=== PATIENT | female | born 1935 | race Two or more races ===

== ENCOUNTER 2017-05-16 20:25 | Inpatient (IN) | payer MEDICARE, MEDICAID ==
[~2017-05-16] VITALS: Ht 157.5 cm; Wt 47.6 kg
[2017-05-16 20:30] VITALS: BP 94/61
[2017-05-16] MEDS ORDERED: MULTIVITAMINS1 EAC2 ORAL (20:30)
[2017-05-16] MEDS ORDERED: PROTONIX40 MG ORAL (20:30)
[2017-05-16] MEDS ORDERED: ZOLPIDEM TARTRAT5 MG ORAL (20:30)
--- NOTE | 2017-05-16 20:44 | Emergency Room Report ---
History of Present Illness General Chief Complaint: General Complaint Source: Patient, Medical Record Present Illness HPI Patient is 81-year-old female presented after increased generalized weakness as well as decreased oral intake. Patient had gradual onset of symptoms. Reportedly patient had not been eating for the past 3 days. The patient was sent from nursing facility. The patient primary care physician Dr. Pio Webb. The patient had some nonproductive cough. She had a reported having some epigastric pain. History is limited by patient's dementia Allergies: Coded Allergies: No Known Allergies (Unverified , 05/16/17) Patient History Past Medical History: see triage record Last Menstrual Period: N/A Reviewed Nursing Documentation: PMH: Agreed, PSxH: Agreed Nursing Documentation-PMH Past Medical History: No History, Except For Hx Hypertension: Yes Review of Systems All Other Systems: limited - by poor historian Physical Exam Vital Signs Date Time Temp Pulse Resp B/P (MAP) Pulse Ox O2 Delivery O2 Flow Rate FiO2 05/16/17 20:26 98.8 88 16 94/61 98 Room Air General Appearance: alert, Chronically Ill Eyes: bilateral eye abnormal EOM ENT: dry mucus membranes Neck: normal inspection, limited range of motion Respiratory: chest non-tender, lungs clear, normal breath sounds Cardiovascular #1: normal peripheral pulses, regular rate, rhythm, no edema Gastrointestinal: soft, tenderness - epigastric Rectal: deferred Genitourinary: normal inspection Musculoskeletal: normal inspection Neurologic: normal inspection, alert, responsive, motor weakness - 4/5 Psychiatric: mood/affect normal Skin: normal inspection, normal color, no rash Medical Decision Making Diagnostic Impression: Primary Impression: Failure to thrive Additional Impression: Anemia ER Course Patient presented for generalized weakness. Differential diagnosis included was not limited to anemia, urinary tract infection, electrolyte abnormality, hypothyroidism, myocardial infarction, myasthenia gravis, dehydration, among others. Because of complexity of patient's case laboratory testing and imaging studies were ordered.Laboratory testing was notable for moderate anemia with hemoglobin less than 8. Patient was given IV fluids. The patient was discussed with Dr. Pio Webb for inpatient management due to primary care physician Labs Test 05/16/17 21:10 05/16/17 23:23 05/17/17 02:00 Differential Total Cells Counted 100 Neutrophils % (Manual) 78 % (45-75) Lymphocytes % (Manual) 14 % (20-45) Monocytes % (Manual) 6 % (1-10) Eosinophils % (Manual) 2 % (0-3) Basophils % (Manual) 0 % (0-2) Band Neutrophils 0 % (0-8) Platelet Estimate Adequate Platelet Morphology Normal Polychromasia 1+ Hypochromasia 1+ Anisocytosis 2+ Lactic Acid Level 1.70 mmol/L (0.66-2.22) Total Creatine Kinase 62 U/L (26-308) Creatine Kinase MB 0.7 NG/ML (0.0-3.6) Creatine Kinase MB Relative Index 1.1 Troponin I 0.026 ng/mL (0.000-0.056) Pro-B-Type Natriuretic Peptide 238 pg/mL (0-125) Urine Color Yellow Urine Appearance Clear Urine pH 6.5 (4.5-8.0) Urine Specific [place] 1.015 (1.005-1.035) Urine Protein 1+ (NEGATIVE) Urine Glucose (UA) Negative (NEGATIVE) Urine Ketones Negative (NEGATIVE) Urine Occult Blood Negative (NEGATIVE) Urine Nitrite Negative (NEGATIVE) Urine Bilirubin Negative (NEGATIVE) Urine Urobilinogen 1 MG/DL (0.0-1.0) Urine Leukocyte Esterase Negative (NEGATIVE) Urine RBC 0-2 /HPF (0 - 2) Urine WBC 0-2 /HPF (0 - 2) Urine Squamous Epithelial Cells Occasional /LPF Urine Bacteria None /HPF (NONE) Sodium Level 141 MMOL/L (136-145) Potassium Level 3.4 MMOL/L (3.5-5.1) Chloride Level 108 MMOL/L (98-107) Carbon Dioxide Level 24 MMOL/L (21-32) Anion Gap 9 mmol/L (5-15) Blood Urea Nitrogen 35 mg/dL (7-18) Creatinine 1.0 MG/DL (0.55-1.30) Estimat Glomerular Filtration Rate mL/min (>60) Glucose Level 87 MG/DL (74-106) Calcium Level 8.6 MG/DL (8.5-10.1) Iron Level 13 ug/dL (50-175) Total Iron Binding Capacity 256 ug/dL (250-450) Percent Iron Saturation 5 % (15-50) Unsaturated Iron Binding 243 ug/dL (112-346) Total Bilirubin 0.4 MG/DL (0.2-1.0) Aspartate Amino Transf (AST/SGOT) 24 U/L (15-37) Alanine Aminotransferase (ALT/SGPT) 15 U/L (12-78) Alkaline Phosphatase 51 U/L (46-116) Lactate Dehydrogenase 202 U/L (81-234) Total Protein 6.2 G/DL (6.4-8.2) Albumin 2.3 G/DL (3.4-5.0) Globulin 3.9 g/dL Albumin/Globulin Ratio 0.6 (1.0-2.7) Triglycerides Level 42 MG/DL (0-200) Cholesterol Level 78 MG/DL (< 200) LDL Cholesterol 48 mg/dL (<100) HDL Cholesterol 31 MG/DL (40-60) Cholesterol/HDL Ratio 2.5 (3.3-4.4) Folate 15.7 NG/ML (3.1-17.5) Thyroid Stimulating Hormone (TSH) 2.616 uiU/mL (0.360-3.740) EKG Diagnostic Results Rate: normal Rhythm: NSR ST Segments: no acute changes ASA given to the pt in ED: No Rhythm Strip Diag. Results EP Interpretation: yes Rhythm: NSR, no PVC's, no ectopy Last Vital Signs Date Time Temp Pulse Resp B/P (MAP) Pulse Ox O2 Delivery O2 Flow Rate FiO2 05/16/17 20:26 98.8 88 16 94/61 98 Room Air Status: improved Disposition: HOME, SELF-CARE Condition: Stable Israel Buitrago May 16, 2017 20:44
[2017-05-16 21:40] LABS: MEAN CORPUSCULAR HGB CONC 28.8 G/DL (32.0-36.0); MEAN CORPUSCULAR VOLUME 83 FL (80-99); MEAN PLATELET VOLUME 7.5 FL (6.5-10.1); PLATELET COUNT 199 K/UL (150-450); RED BLOOD COUNT 3.29 M/UL (4.20-5.40); WHITE BLOOD COUNT 8.3 K/UL (4.8-10.8)
[2017-05-16 21:55] LABS: INR 1.1 (0.9-1.1); PROTHROMBIN TIME 11.1 SEC (9.30-11.50)
[2017-05-16 22:10] LABS: ALANINE AMINOTRANSFERASE 18 U/L (12-78); ALBUMIN/GLOBULIN RATIO 0.6 (1.0-2.7); ANION GAP 12 mmol/L (5-15); ASPARTATE AMINO TRANSFERASE 28 U/L (15-37); CALCIUM 9.2 MG/DL (8.5-10.1); CARBON DIOXIDE 22 MMOL/L (21-32); CHLORIDE 107 MMOL/L (98-107); CKMB 0.7 NG/ML (0.0-3.6); POTASSIUM 3.4 MMOL/L (3.5-5.1); SODIUM 141 MMOL/L (136-145); TOTAL PROTEIN 6.9 G/DL (6.4-8.2)
[2017-05-16 22:30] VITALS: BP 101/63
[2017-05-16 22:31] LABS: EOSINOPHILS % (MANUAL) 2 % (0-3); LYMPHOCYTES % (MANUAL) 14 % (20-45); NEUTROPHILS % (MANUAL) 78 % (45-75); TOTAL CELLS COUNTED 100
[2017-05-16 22:32] LABS: BAND NEUTROPHILS % (MANUAL) 0 % (0-8); BASOPHILS % (MANUAL) 0 % (0-2); PLATELET ESTIMATE ADEQUATE
[2017-05-16 22:34] LABS: ANISOCYTOSIS 2+; HYPOCHROMASIA 1+; PLATELET MORPHOLOGY NORMAL; POLYCHROMASIA 1+
[2017-05-16] MEDS ORDERED: Miralax 17gm pkt ORAL PRN (23:30)
[2017-05-16] MEDS ORDERED: LORazepam Inj 2mg/ml 1ml IV PRN (23:30)
[2017-05-16] MEDS ORDERED: Zolpidem 5mg tab ORAL PRN (23:30)
[2017-05-16] MEDS ORDERED: Morphine Sulfate 2mg/ml Inj IVP PRN (23:30)
[2017-05-16] MEDS ORDERED: Mylanta II UD 30ml ORAL PRN (23:30)
[2017-05-16 23:40] LABS: APPEARANCE,URINE CLEAR; KETONES,URINE NEGATIVE (NEGATIVE); LEUKOCYTE ESTERASE ,URINE NEGATIVE (NEGATIVE); NITRITE,URINE NEGATIVE (NEGATIVE); PH,URINE 6.5 (4.5-8.0); PROTEIN,URINE 1+ (NEGATIVE); UROBILINOGEN,URINE 1 MG/DL (0.0-1.0)
[2017-05-16 23:57] LABS: RBC,URINE 0-2 /HPF (0 - 2); SQUAMOUS EPITHELIAL CELL,UR OCCASIONAL /LPF (NONE/OCC); WBC,URINE 0-2 /HPF (0 - 2)
[2017-05-17] VITALS (8 sets, daily range): BP systolic 109–126; BP diastolic 52–72
[2017-05-17 02:36] LABS: INR 1.1 (0.9-1.1); PROTHROMBIN TIME 11.4 SEC (9.30-11.50)
[2017-05-17 02:42] LABS: LACTATE DEHYDROGENASE 202 U/L (81-234)
[2017-05-17 03:05] LABS: ALANINE AMINOTRANSFERASE 15 U/L (12-78); ALBUMIN/GLOBULIN RATIO 0.6 (1.0-2.7); ANION GAP 9 mmol/L (5-15); ASPARTATE AMINO TRANSFERASE 24 U/L (15-37); CALCIUM 8.6 MG/DL (8.5-10.1); CARBON DIOXIDE 24 MMOL/L (21-32); CHLORIDE 108 MMOL/L (98-107); CHOLESTEROL 78 MG/DL (< 200); CHOLESTEROL/HDL RATIO 2.5 (3.3-4.4); POTASSIUM 3.4 MMOL/L (3.5-5.1); SODIUM 141 MMOL/L (136-145); THYROID STIMULATING HORMONE 2.616 uiU/mL (0.360-3.740); TOTAL PROTEIN 6.2 G/DL (6.4-8.2)
[2017-05-17 03:11] LABS: FOLIC ACID 15.7 NG/ML (3.1-17.5); IRON 13 ug/dL (50-175); TOTAL IRON BINDING CAPACITY 256 ug/dL (250-450)
--- NOTE | 2017-05-17 08:25 | General Progress Note ---
Progress Note Progress Note patent seen and examined full note dictated PAMELA DOE May 17, 2017 08:25
[2017-05-17] MEDS ORDERED: KCl 10% 40mEq/30ml liquid ORAL ONE (09:00)
--- NOTE | 2017-05-17 09:41 | Diagnostic Imaging Report ---
Clinical Indication: Abdominal pain Technique: No oral contrast utilized, per emergency room physician request IV administration nonionic contrast. Venous phase spiral acquisition obtained through the abdomen and pelvis. Multiplanar reconstructions were generated. Total dose length product 412 mGycm. CTDIvol(s) 9 mGy. Dose reduction achieved using automated exposure control Comparison: None Findings: The liver is atrophic and demonstrates marked surface nodularity. There is a capsular calcification within the liver. No focal abnormality demonstrated. Gallstones are seen within the gallbladder. No biliary ductal dilatation. There are sizable periesophageal varices noted. There is no ascites or splenomegaly. Pancreas, adrenals, left kidney are unremarkable. Right kidney demonstrates subcentimeter low-attenuation lesions which are too small to characterize. No pelvic mass or adenopathy. Uterus not visualized, presumed surgically absent. The appendix is not definitely visualized, no findings to suggest acute appendicitis are evident. Small bowel loops are diffusely prominent. No free or loculated intraperitoneal air or fluid. There is a moderate-sized sliding-type hiatal hernia. There is wall thickening of the distal esophagus The stomach is otherwise unremarkable. Duodenum is unremarkable. Vascular structures are unremarkable. Compressive atelectatic changes are seen at both lung bases. There is some focal pleural thickening in the right costophrenic sulcus. The bones demonstrate degenerative spondylosis changes. Mild alignment abnormalities of the lumbar spine are likely related to such. 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 Distal esophageal wall thickening, nonspecific, may be the result of reflux esophagitis related to the above Bilateral basilar atelectasis Degenerative spondylosis Borderline cardiomegaly This agrees with the preliminary interpretation provided overnight by [facility] teleradiology service. The CT scanner at [facility] is accredited by the [employer] and the scans are performed using protocols designed to limit radiation exposure to as low as reasonably achievable to attain images of sufficient resolution adequate for diagnostic evaluation.
--- NOTE | 2017-05-17 11:42 | Diagnostic Imaging Report ---
Indication: SOB Technique: One view of the chest Comparison: none Findings: Lungs and pleural spaces are clear. The heart is upper limits of normal in size. The aorta is tortuous. Degenerative changes of both shoulders are noted Impression: No acute process
--- NOTE | 2017-05-17 11:53 | Consultation ---
History of Present Illness General Chief Complaint: General Complaint Reason for Consultation: inpatient management Present Illness HPI 81-year-old female, snf resident presented with CC of increased generalized weakness as well as decreased oral intake. Reportedly patient had not been eating for the past 3 days. The patient primary care physician Dr. Pio Webb. The patient had some nonproductive cough. She was found to be severely anemic and dehydrated and admitted for further work up. Allergies: Coded Allergies: No Known Allergies (Unverified , 05/16/17) Medication History Scheduled Multivitamins* (Multivitamins*), 1 TAB ORAL DAILY, (Reported) Pantoprazole* (Protonix*), 40 MG ORAL DAILY, (Reported) Scheduled PRN Zolpidem Tartrate* (Zolpidem Tartrate*), 5 MG ORAL BEDTIME PRN for Insomnia, ( Reported) Patient History Healthcare decision maker Resuscitation status Full Code Advanced Directive on File Past Medical/Surgical History Past Medical/Surgical History: (1) Advanced dementia Review of Systems Constitutional: Reports: malaise, weakness All Other Systems: negative except mentioned in HPI Physical Exam General Appearance: cachetic Lines, tubes and drains: peripheral HEENT: normocephalic, atraumatic Neck: non-tender, normal alignment Respiratory/Chest: chest wall non-tender, lungs clear Abdomen: non tender, soft Last 24 Hour Vital Signs Date Time Temp Pulse Resp B/P (MAP) Pulse Ox O2 Delivery O2 Flow Rate FiO2 05/17/17 11:30 98.1 74 18 109/58 97 Room Air 05/17/17 08:07 96.8 90 18 120/71 98 Room Air 05/17/17 08:00 74 05/17/17 04:00 73 05/17/17 04:00 98.0 72 20 126/72 99 Room Air 05/17/17 01:56 97.7 76 20 117/71 99 Room Air 05/17/17 01:45 98.8 75 19 119/52 99 Room Air 05/17/17 01:45 98.4 75 19 119/52 99 Room Air 05/17/17 00:30 98.4 64 12 109/55 100 Room Air 05/16/17 22:30 98.4 68 15 101/63 98 Room Air 05/16/17 20:30 98.8 64 16 94/61 98 Room Air 05/16/17 20:26 98.8 88 16 94/61 98 Room Air Intake and Output 05/17/17 05/18/17 19:00 07:00 Intake Total 150 ml Output Total 650 ml Balance -500 ml Intake Oral 150 ml Output Urine Total 650 ml # Voids 1 Laboratory Tests Test 05/16/17 21:10 05/16/17 23:23 05/17/17 02:00 White Blood Count 8.3 K/UL (4.8-10.8) Pending Red Blood Count 3.29 M/UL (4.20-5.40) L Pending Hemoglobin 7.9 G/DL (12.0-16.0) L Pending Hematocrit 27.4 % (37.0-47.0) L Pending Mean Corpuscular Volume 83 FL (80-99) Pending Mean Corpuscular Hemoglobin 24.0 PG (27.0-31.0) L Pending Mean Corpuscular Hemoglobin Concent 28.8 G/DL (32.0-36.0) L Pending Red Cell Distribution Width 19.0 % (11.6-14.8) H Pending Platelet Count 199 K/UL (150-450) Pending Mean Platelet Volume 7.5 FL (6.5-10.1) Pending Neutrophils (%) (Auto) % (45.0-75.0) Pending Lymphocytes (%) (Auto) % (20.0-45.0) Pending Monocytes (%) (Auto) % (1.0-10.0) Pending Eosinophils (%) (Auto) % (0.0-3.0) Pending Basophils (%) (Auto) % (0.0-2.0) Pending Differential Total Cells Counted 100 Neutrophils % (Manual) 78 % (45-75) H Lymphocytes % (Manual) 14 % (20-45) L Monocytes % (Manual) 6 % (1-10) Eosinophils % (Manual) 2 % (0-3) Basophils % (Manual) 0 % (0-2) Band Neutrophils 0 % (0-8) Platelet Estimate Adequate Platelet Morphology Normal Polychromasia 1+ Hypochromasia 1+ Anisocytosis 2+ Prothrombin Time 11.1 SEC (9.30-11.50) 11.4 SEC (9.30-11.50) Prothromb Time International Ratio 1.1 (0.9-1.1) 1.1 (0.9-1.1) Activated Partial Thromboplast Time 23 SEC (23-33) 26 SEC (23-33) Sodium Level 141 MMOL/L (136-145) 141 MMOL/L (136-145) Potassium Level 3.4 MMOL/L (3.5-5.1) L 3.4 MMOL/L (3.5-5.1) L Chloride Level 107 MMOL/L (98-107) 108 MMOL/L (98-107) H Carbon Dioxide Level 22 MMOL/L (21-32) 24 MMOL/L (21-32) Anion Gap 12 mmol/L (5-15) 9 mmol/L (5-15) Blood Urea Nitrogen 39 mg/dL (7-18) H 35 mg/dL (7-18) H Creatinine 1.0 MG/DL (0.55-1.30) 1.0 MG/DL (0.55-1.30) Estimat Glomerular Filtration Rate mL/min (>60) mL/min (>60) Glucose Level 111 MG/DL (74-106) H 87 MG/DL (74-106) Lactic Acid Level 1.70 mmol/L (0.66-2.22) Calcium Level 9.2 MG/DL (8.5-10.1) 8.6 MG/DL (8.5-10.1) Total Bilirubin 0.5 MG/DL (0.2-1.0) 0.4 MG/DL (0.2-1.0) Aspartate Amino Transf (AST/SGOT) 28 U/L (15-37) 24 U/L (15-37) Alanine Aminotransferase (ALT/SGPT) 18 U/L (12-78) 15 U/L (12-78) Alkaline Phosphatase 56 U/L (46-116) 51 U/L (46-116) Total Creatine Kinase 62 U/L (26-308) Creatine Kinase MB 0.7 NG/ML (0.0-3.6) Creatine Kinase MB Relative Index 1.1 Troponin I 0.026 ng/mL (0.000-0.056) Pro-B-Type Natriuretic Peptide 238 pg/mL (0-125) H Total Protein 6.9 G/DL (6.4-8.2) 6.2 G/DL (6.4-8.2) L Albumin 2.5 G/DL (3.4-5.0) L 2.3 G/DL (3.4-5.0) L Globulin 4.4 g/dL 3.9 g/dL Albumin/Globulin Ratio 0.6 (1.0-2.7) L 0.6 (1.0-2.7) L Urine Color Yellow Urine Appearance Clear Urine pH 6.5 (4.5-8.0) Urine Specific [place] 1.015 (1.005-1.035) Urine Protein 1+ (NEGATIVE) H Urine Glucose (UA) Negative (NEGATIVE) Urine Ketones Negative (NEGATIVE) Urine Occult Blood Negative (NEGATIVE) Urine Nitrite Negative (NEGATIVE) Urine Bilirubin Negative (NEGATIVE) Urine Urobilinogen 1 MG/DL (0.0-1.0) H Urine Leukocyte Esterase Negative (NEGATIVE) Urine RBC 0-2 /HPF (0 - 2) Urine WBC 0-2 /HPF (0 - 2) Urine Squamous Epithelial Cells Occasional /LPF Urine Bacteria None /HPF (NONE) Erythrocyte Sedimentation Rate Pending Reticulocyte Count Pending Iron Level 13 ug/dL (50-175) L Total Iron Binding Capacity 256 ug/dL (250-450) Percent Iron Saturation 5 % (15-50) L Unsaturated Iron Binding 243 ug/dL (112-346) Lactate Dehydrogenase 202 U/L (81-234) Triglycerides Level 42 MG/DL (0-200) Cholesterol Level 78 MG/DL (< 200) LDL Cholesterol 48 mg/dL (<100) HDL Cholesterol 31 MG/DL (40-60) L Cholesterol/HDL Ratio 2.5 (3.3-4.4) L Vitamin B12 Level 405 PG/ML (193-986) Folate 15.7 NG/ML (3.1-17.5) Thyroid Stimulating Hormone (TSH) 2.616 uiU/mL (0.360-3.740) Height (Feet): 5 Height (Inches): 3.00 Weight (Pounds): 108 Medications Current Medications Medications (Trade) Dose Ordered Sig/Natalie Route PRN Reason Start Time Stop Time Status Last Admin Dose Admin Acetaminophen (Tylenol) 650 mg Q4H PRN ORAL fever 05/16/17 23:30 06/15/17 23:29 Al Hydroxide/Mg Hydroxide (Mylanta II) 30 ml Q6H PRN ORAL dyspepsia 05/16/17 23:30 06/15/17 23:29 Dextrose (Dextrose 50%) STAT PRN IV Hypoglycemia 05/16/17 23:30 06/15/17 23:29 Iron Sucrose 100 mg/Sodium Chloride 60 ml @ 240 mls/hr BEDTIME IV 05/17/17 21:00 05/21/17 21:14 Lorazepam (Ativan 2mg/ml 1ml) 0.5 mg Q4H PRN IV For Anxiety 05/16/17 23:30 05/23/17 23:29 Morphine Sulfate (Morphine Sulfate) 1 mg EVERY 4 HOURS PRN IVP For Pain 05/16/17 23:30 05/23/17 23:29 Ondansetron HCl (Zofran) 4 mg Q6H PRN IVP Nausea & Vomiting 05/16/17 23:30 06/15/17 23:29 Polyethylene Glycol (Miralax) 17 gm HSPRN PRN ORAL Constipation 05/16/17 23:30 06/15/17 23:29 Zolpidem Tartrate (Ambien) 5 mg HSPRN PRN ORAL Insomnia 05/16/17 23:30 05/23/17 23:29 Assessment/Plan Problem List: (1) Anemia ICD Codes: D64.9 - Anemia, unspecified SNOMED: 060873341 (2) ATN (acute tubular necrosis) ICD Codes: N17.0 - Acute kidney failure with tubular necrosis SNOMED: 71232302 (3) Advanced dementia ICD Codes: F03.90 - Unspecified dementia without behavioral disturbance SNOMED: 23251496 (4) Failure to thrive SNOMED: 08952582 Assessment/Plan anemia w/u IV fluids GI f/u calorie count stool for OB check electrolytes SANDEEP PAIGE May 17, 2017 11:53
--- NOTE | 2017-05-17 11:54 | Pulmonology Progress Note ---
Assessment/Plan Problems: (1) Anemia (2) ATN (acute tubular necrosis) (3) Advanced dementia (4) Failure to thrive Assessment/Plan anemia w/u received one unit of PRBC IV fluids GI f/u calorie count stool for OB check electrolytes med/surg Subjective Interval Events: somnolent Allergies: Coded Allergies: No Known Allergies (Unverified , 05/16/17) Objective Last 24 Hour Vital Signs Date Time Temp Pulse Resp B/P (MAP) Pulse Ox O2 Delivery O2 Flow Rate FiO2 05/17/17 11:30 98.1 74 18 109/58 97 Room Air 05/17/17 08:07 96.8 90 18 120/71 98 Room Air 05/17/17 08:00 74 05/17/17 04:00 73 05/17/17 04:00 98.0 72 20 126/72 99 Room Air 05/17/17 01:56 97.7 76 20 117/71 99 Room Air 05/17/17 01:45 98.8 75 19 119/52 99 Room Air 05/17/17 01:45 98.4 75 19 119/52 99 Room Air 05/17/17 00:30 98.4 64 12 109/55 100 Room Air 05/16/17 22:30 98.4 68 15 101/63 98 Room Air 05/16/17 20:30 98.8 64 16 94/61 98 Room Air 05/16/17 20:26 98.8 88 16 94/61 98 Room Air Intake and Output 05/17/17 05/18/17 19:00 07:00 Intake Total 150 ml Output Total 650 ml Balance -500 ml Intake Oral 150 ml Output Urine Total 650 ml # Voids 1 General Appearance: cachetic HEENT: normocephalic, atraumatic Respiratory/Chest: chest wall non-tender, lungs clear Breasts: no masses Cardiovascular: normal peripheral pulses, normal rate, regularly irregular Abdomen: normal bowel sounds, soft, non tender Extremities: no cyanosis Skin: no rash 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 Lymphatic: no neck adenopathy Laboratory Tests 05/16/17 21:10: White Blood Count 8.3, Red Blood Count 3.29L, Hemoglobin 7.9L, Hematocrit 27.4L , Mean Corpuscular Volume 83, Mean Corpuscular Hemoglobin 24.0L, Mean Corpuscular Hemoglobin Concent 28.8L, Red Cell Distribution Width 19.0H, Platelet Count 199, Mean Platelet Volume 7.5, Neutrophils (%) (Auto) , Lymphocytes (%) (Auto) , Monocytes (%) (Auto) , Eosinophils (%) (Auto) , Basophils (%) (Auto) , Differential Total Cells Counted 100, Neutrophils % ( Manual) 78H, Lymphocytes % (Manual) 14L, Monocytes % (Manual) 6, Eosinophils % ( Manual) 2, Basophils % (Manual) 0, Band Neutrophils 0, Platelet Estimate Adequate, Platelet Morphology Normal, Polychromasia 1+, Hypochromasia 1+, Anisocytosis 2+, Prothrombin Time 11.1, Prothromb Time International Ratio 1.1, Activated Partial Thromboplast Time 23, Sodium Level 141, Potassium Level 3.4L, Chloride Level 107, Carbon Dioxide Level 22, Anion Gap 12, Blood Urea Nitrogen 39H, Creatinine 1.0, Estimat Glomerular Filtration Rate , Glucose Level 111H, Lactic Acid Level 1.70, Calcium Level 9.2, Total Bilirubin 0.5, Aspartate Amino Transf (AST/SGOT) 28, Alanine Aminotransferase (ALT/SGPT) 18, Alkaline Phosphatase 56, Total Creatine Kinase 62, Creatine Kinase MB 0.7, Creatine Kinase MB Relative Index 1.1, Troponin I 0.026, Pro-B-Type Natriuretic Peptide 238H, Total Protein 6.9, Albumin 2.5L, Globulin 4.4, Albumin/Globulin Ratio 0.6L 05/16/17 23:23: Urine Color Yellow, Urine Appearance Clear, Urine pH 6.5, Urine Specific [place] 1.015, Urine Protein 1+H, Urine Glucose (UA) Negative, Urine Ketones Negative, Urine Occult Blood Negative, Urine Nitrite Negative, Urine Bilirubin Negative, Urine Urobilinogen 1H, Urine Leukocyte Esterase Negative, Urine RBC 0- 2, Urine WBC 0-2, Urine Squamous Epithelial Cells Occasional, Urine Bacteria None 05/17/17 02:00: White Blood Count [Pending], Red Blood Count [Pending], Hemoglobin [Pending], Hematocrit [Pending], Mean Corpuscular Volume [Pending], Mean Corpuscular Hemoglobin [Pending], Mean Corpuscular Hemoglobin Concent [Pending], Red Cell Distribution Width [Pending], Platelet Count [Pending], Mean Platelet Volume [ Pending], Neutrophils (%) (Auto) [Pending], Lymphocytes (%) (Auto) [Pending], Monocytes (%) (Auto) [Pending], Eosinophils (%) (Auto) [Pending], Basophils (%) (Auto) [Pending], Prothrombin Time 11.4, Prothromb Time International Ratio 1.1 , Activated Partial Thromboplast Time 26, Sodium Level 141, Potassium Level 3.4L , Chloride Level 108H, Carbon Dioxide Level 24, Anion Gap 9, Blood Urea Nitrogen 35H, Creatinine 1.0, Estimat Glomerular Filtration Rate , Glucose Level 87, Calcium Level 8.6, Total Bilirubin 0.4, Aspartate Amino Transf (AST/ SGOT) 24, Alanine Aminotransferase (ALT/SGPT) 15, Alkaline Phosphatase 51, Total Protein 6.2L, Albumin 2.3L, Globulin 3.9, Albumin/Globulin Ratio 0.6L, Erythrocyte Sedimentation Rate [Pending], Reticulocyte Count [Pending], Iron Level 13L, Total Iron Binding Capacity 256, Percent Iron Saturation 5L, Unsaturated Iron Binding 243, Lactate Dehydrogenase 202, Triglycerides Level 42 , Cholesterol Level 78, LDL Cholesterol 48, HDL Cholesterol 31L, Cholesterol/ HDL Ratio 2.5L, Vitamin B12 Level 405, Folate 15.7, Thyroid Stimulating Hormone (TSH) 2.616 Current Medications Medications (Trade) Dose Ordered Sig/Natalie Route PRN Reason Start Time Stop Time Status Last Admin Dose Admin Acetaminophen (Tylenol) 650 mg Q4H PRN ORAL fever 05/16/17 23:30 06/15/17 23:29 Al Hydroxide/Mg Hydroxide (Mylanta II) 30 ml Q6H PRN ORAL dyspepsia 05/16/17 23:30 06/15/17 23:29 Dextrose (Dextrose 50%) STAT PRN IV Hypoglycemia 05/16/17 23:30 06/15/17 23:29 Iron Sucrose 100 mg/Sodium Chloride 60 ml @ 240 mls/hr BEDTIME IV 05/17/17 21:00 05/21/17 21:14 Lorazepam (Ativan 2mg/ml 1ml) 0.5 mg Q4H PRN IV For Anxiety 05/16/17 23:30 05/23/17 23:29 Morphine Sulfate (Morphine Sulfate) 1 mg EVERY 4 HOURS PRN IVP For Pain 05/16/17 23:30 05/23/17 23:29 Ondansetron HCl (Zofran) 4 mg Q6H PRN IVP Nausea & Vomiting 05/16/17 23:30 06/15/17 23:29 Polyethylene Glycol (Miralax) 17 gm HSPRN PRN ORAL Constipation 05/16/17 23:30 06/15/17 23:29 Zolpidem Tartrate (Ambien) 5 mg HSPRN PRN ORAL Insomnia 05/16/17 23:30 05/23/17 23:29 SANDEEP PAIGE May 17, 2017 11:54
--- NOTE | 2017-05-17 12:03 | GI Initial Consult Note ---
RodneySridevi wilson N.PGabi 05/17/17 1203: History of Present Illness General Date patient seen: May 17, 2017 Time patient seen: 10:00 Reason for Hospitalization: General Complaint Referring physician: MEG RAUSCH Reason for Consultation: FTT Present Illness HPI Patient is 81-year-old female presented after increased generalized weakness as well as decreased oral intake. Patient had gradual onset of symptoms. Reportedly patient had not been eating for the past 3 days. The patient was sent from nursing facility. The patient primary care physician Dr. Meg Rausch. The patient had some nonproductive cough. She had a reported having some epigastric pain. History is limited by patient's dementia. GI consulted for FTT/poor PO intake/anemia. HPI as noted above. ROS limited, AMS. Pt seen on floor awake and alert denies any pain at this time. Per RN report patient tolerated 50% of breakfast. She presents today with anemia requiring blood transfusions. Labs show iron deficiency. Unknown history of endoscopy/colonoscopies. CT AP reviewed, see report below. 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 Distal esophageal wall thickening, nonspecific, may be the result of reflux esophagitis related to the above Bilateral basilar atelectasis Degenerative spondylosis Borderline cardiomegaly Home Meds Reported Medications Multivitamins* (MULTIVITAMINS*) 1 Each Tablet, 1 TAB ORAL DAILY, TAB 0 Refills 05/16/17 Pantoprazole* (PROTONIX*) 40 Mg Tablet.dr 40 MG ORAL DAILY, TAB 05/16/17 Zolpidem Tartrate* (ZOLPIDEM TARTRATE*) 5 Mg Tablet, 5 MG ORAL BEDTIME Y for Insomnia, TAB 0 Refills 05/16/17 Med list reviewed/reconciled: Yes Allergies: Coded Allergies: No Known Allergies (Unverified , 05/16/17) Patient History Limited by: medical condition History Provided By: Medical Record PMH Narrative Past Medical History: see triage record Last Menstrual Period: N/A Reviewed Nursing Documentation: PMH: Agreed, PSxH: Agreed Nursing Documentation-PMH Past Medical History: No History, Except For Hx Hypertension: Yes Social History: Reports: alcohol use Review of Systems All Other Systems: limited Physical Exam Vital Signs Date Time Temp Pulse Resp B/P (MAP) Pulse Ox O2 Delivery O2 Flow Rate FiO2 05/16/17 20:26 98.8 88 16 94/61 98 Room Air Sp02 EP Interpretation: reviewed, normal Labs Laboratory Tests Test 05/16/17 21:10 05/16/17 23:23 05/17/17 02:00 White Blood Count 8.3 K/UL (4.8-10.8) Pending Red Blood Count 3.29 M/UL (4.20-5.40) L Pending Hemoglobin 7.9 G/DL (12.0-16.0) L Pending Hematocrit 27.4 % (37.0-47.0) L Pending Mean Corpuscular Volume 83 FL (80-99) Pending Mean Corpuscular Hemoglobin 24.0 PG (27.0-31.0) L Pending Mean Corpuscular Hemoglobin Concent 28.8 G/DL (32.0-36.0) L Pending Red Cell Distribution Width 19.0 % (11.6-14.8) H Pending Platelet Count 199 K/UL (150-450) Pending Mean Platelet Volume 7.5 FL (6.5-10.1) Pending Neutrophils (%) (Auto) % (45.0-75.0) Pending Lymphocytes (%) (Auto) % (20.0-45.0) Pending Monocytes (%) (Auto) % (1.0-10.0) Pending Eosinophils (%) (Auto) % (0.0-3.0) Pending Basophils (%) (Auto) % (0.0-2.0) Pending Differential Total Cells Counted 100 Neutrophils % (Manual) 78 % (45-75) H Lymphocytes % (Manual) 14 % (20-45) L Monocytes % (Manual) 6 % (1-10) Eosinophils % (Manual) 2 % (0-3) Basophils % (Manual) 0 % (0-2) Band Neutrophils 0 % (0-8) Platelet Estimate Adequate Platelet Morphology Normal Polychromasia 1+ Hypochromasia 1+ Anisocytosis 2+ Prothrombin Time 11.1 SEC (9.30-11.50) 11.4 SEC (9.30-11.50) Prothromb Time International Ratio 1.1 (0.9-1.1) 1.1 (0.9-1.1) Activated Partial Thromboplast Time 23 SEC (23-33) 26 SEC (23-33) Sodium Level 141 MMOL/L (136-145) 141 MMOL/L (136-145) Potassium Level 3.4 MMOL/L (3.5-5.1) L 3.4 MMOL/L (3.5-5.1) L Chloride Level 107 MMOL/L (98-107) 108 MMOL/L (98-107) H Carbon Dioxide Level 22 MMOL/L (21-32) 24 MMOL/L (21-32) Anion Gap 12 mmol/L (5-15) 9 mmol/L (5-15) Blood Urea Nitrogen 39 mg/dL (7-18) H 35 mg/dL (7-18) H Creatinine 1.0 MG/DL (0.55-1.30) 1.0 MG/DL (0.55-1.30) Estimat Glomerular Filtration Rate mL/min (>60) mL/min (>60) Glucose Level 111 MG/DL (74-106) H 87 MG/DL (74-106) Lactic Acid Level 1.70 mmol/L (0.66-2.22) Calcium Level 9.2 MG/DL (8.5-10.1) 8.6 MG/DL (8.5-10.1) Total Bilirubin 0.5 MG/DL (0.2-1.0) 0.4 MG/DL (0.2-1.0) Aspartate Amino Transf (AST/SGOT) 28 U/L (15-37) 24 U/L (15-37) Alanine Aminotransferase (ALT/SGPT) 18 U/L (12-78) 15 U/L (12-78) Alkaline Phosphatase 56 U/L (46-116) 51 U/L (46-116) Total Creatine Kinase 62 U/L (26-308) Creatine Kinase MB 0.7 NG/ML (0.0-3.6) Creatine Kinase MB Relative Index 1.1 Troponin I 0.026 ng/mL (0.000-0.056) Pro-B-Type Natriuretic Peptide 238 pg/mL (0-125) H Total Protein 6.9 G/DL (6.4-8.2) 6.2 G/DL (6.4-8.2) L Albumin 2.5 G/DL (3.4-5.0) L 2.3 G/DL (3.4-5.0) L Globulin 4.4 g/dL 3.9 g/dL Albumin/Globulin Ratio 0.6 (1.0-2.7) L 0.6 (1.0-2.7) L Urine Color Yellow Urine Appearance Clear Urine pH 6.5 (4.5-8.0) Urine Specific [place] 1.015 (1.005-1.035) Urine Protein 1+ (NEGATIVE) H Urine Glucose (UA) Negative (NEGATIVE) Urine Ketones Negative (NEGATIVE) Urine Occult Blood Negative (NEGATIVE) Urine Nitrite Negative (NEGATIVE) Urine Bilirubin Negative (NEGATIVE) Urine Urobilinogen 1 MG/DL (0.0-1.0) H Urine Leukocyte Esterase Negative (NEGATIVE) Urine RBC 0-2 /HPF (0 - 2) Urine WBC 0-2 /HPF (0 - 2) Urine Squamous Epithelial Cells Occasional /LPF Urine Bacteria None /HPF (NONE) Erythrocyte Sedimentation Rate Pending Reticulocyte Count Pending Iron Level 13 ug/dL (50-175) L Total Iron Binding Capacity 256 ug/dL (250-450) Percent Iron Saturation 5 % (15-50) L Unsaturated Iron Binding 243 ug/dL (112-346) Lactate Dehydrogenase 202 U/L (81-234) Triglycerides Level 42 MG/DL (0-200) Cholesterol Level 78 MG/DL (< 200) LDL Cholesterol 48 mg/dL (<100) HDL Cholesterol 31 MG/DL (40-60) L Cholesterol/HDL Ratio 2.5 (3.3-4.4) L Vitamin B12 Level 405 PG/ML (193-986) Folate 15.7 NG/ML (3.1-17.5) Thyroid Stimulating Hormone (TSH) 2.616 uiU/mL (0.360-3.740) General Appearance: well appearing, no apparent distress, alert, other - confused Head: normocephalic EENT: PERRL/EOMI, normal ENT inspection Neck: supple Respiratory: normal breath sounds, no respiratory distress Cardiovascular: normal rate Gastrointestinal: normal inspection, non tender, soft, normal bowel sounds, non -distended Rectal: deferred Genitourinary: no CVA tenderness Musculoskeletal: normal inspection, back normal Neurologic: normal inspection, alert, responsive Psychiatric: normal inspection, judgement/insight normal, memory normal Skin: normal inspection, normal color, no rash, warm/dry, palpation normal, well hydrated Lymphatic: normal inspection, no adenopathy Current Medications Current Medications Medications (Trade) Dose Ordered Sig/Natalie Route PRN Reason Start Time Stop Time Status Last Admin Dose Admin Acetaminophen (Tylenol) 650 mg Q4H PRN ORAL fever 05/16/17 23:30 06/15/17 23:29 Al Hydroxide/Mg Hydroxide (Mylanta II) 30 ml Q6H PRN ORAL dyspepsia 05/16/17 23:30 06/15/17 23:29 Dextrose (Dextrose 50%) STAT PRN IV Hypoglycemia 05/16/17 23:30 06/15/17 23:29 Iron Sucrose 100 mg/Sodium Chloride 60 ml @ 240 mls/hr BEDTIME IV 05/17/17 21:00 05/21/17 21:14 Lorazepam (Ativan 2mg/ml 1ml) 0.5 mg Q4H PRN IV For Anxiety 05/16/17 23:30 05/23/17 23:29 Morphine Sulfate (Morphine Sulfate) 1 mg EVERY 4 HOURS PRN IVP For Pain 05/16/17 23:30 05/23/17 23:29 Ondansetron HCl (Zofran) 4 mg Q6H PRN IVP Nausea & Vomiting 05/16/17 23:30 06/15/17 23:29 Polyethylene Glycol (Miralax) 17 gm HSPRN PRN ORAL Constipation 05/16/17 23:30 06/15/17 23:29 Zolpidem Tartrate (Ambien) 5 mg HSPRN PRN ORAL Insomnia 05/16/17 23:30 05/23/17 23:29 GI: Plan Problems: (1) Cirrhosis (2) Iron deficiency (3) Failure to thrive (4) Advanced dementia (5) Anemia Plan CT AP reviewed >> Evidence of hepatic cirrhosis. Periesophageal varices. EGD scheduled tomorrow given anemia and varices seen on recent CT. okay to adv diet per ST anemia work up >> iron deficiency >> venofer OB stool r/o GI bleed monitor H&H, prn transfusions bowel regime ppi fu calorie count fu labs Discussed with Dr. Juarez. Thank you for this patient referral, we will follow. SHRAVAN JUAREZ 05/18/17 0722: History of Present Illness General Reason for Hospitalization: General Complaint Present Illness Home Meds Reported Medications Multivitamins* (MULTIVITAMINS*) 1 Each Tablet, 1 TAB ORAL DAILY, TAB 0 Refills 05/16/17 Pantoprazole* (PROTONIX*) 40 Mg Tablet.dr, 40 MG ORAL DAILY, TAB 05/16/17 Zolpidem Tartrate* (ZOLPIDEM TARTRATE*) 5 Mg Tablet, 5 MG ORAL BEDTIME Y for Insomnia, TAB 0 Refills 05/16/17 Allergies: Coded Allergies: No Known Allergies (Unverified , 05/16/17) GI: Plan Plan The patient was seen and examined at bedside and all new and available data was reviewed in the patients chart. I agree with the above findings, impression and plan. (Patient seen earlier today. Signature stamp does not reflect patient encounter time.). - MD [facility] Beltran Garnica May 17, 2017 12:03 SHRAVAN JUAREZ May 18, 2017 07:22
--- NOTE | 2017-05-17 14:57 | Cardiology Report ---
APPROVED REPORT EKG Measurement Heart [id number] MA [id number] [id number] Sinus rhythm with premature supraventricular complexes Low voltage QRS Left posterior fascicular block Cannot rule out Anterior infarct, age undetermined Abnormal ECG
[2017-05-17 15:21] LABS: BASOPHILS % (AUTO) 0.6 % (0.0-2.0); EOSINOPHILS % (AUTO) 1.1 % (0.0-3.0); LYMPHOCYTES % (AUTO) 7.9 % (20.0-45.0); MEAN CORPUSCULAR HEMOGLOBIN 25.9 PG (27.0-31.0); MEAN CORPUSCULAR HGB CONC 31.7 G/DL (32.0-36.0); MEAN CORPUSCULAR VOLUME 82 FL (80-99); MEAN PLATELET VOLUME 8.4 FL (6.5-10.1); MONOCYTES % (AUTO) 7.5 % (1.0-10.0); NEUTROPHILS % (AUTO) 82.9 % (45.0-75.0); PLATELET COUNT 183 K/UL (150-450); RED BLOOD COUNT 3.56 M/UL (4.20-5.40); RED CELL DISTRIBUTION WIDTH 17.8 % (11.6-14.8); WHITE BLOOD COUNT 7.5 K/UL (4.8-10.8)
--- NOTE | 2017-05-17 16:30 | History and Physical Report ---
DATE OF ADMISSION: 05/16/2017 TIME SEEN: 05/17/2017 at 8 a.m. ATTENDING PHYSICIAN: Pio Webb D.O. CONSULTANTS: 1. Karen Dennis M.D. 2. Floyd Huggisn M.D. 3. Olive Johnson M.D. 4. Yasmin Brand M.D. CHIEF COMPLAINT: Generalized weakness, failure to thrive, anemia, dehydration, and psych history. BRIEF HISTORY: This is an 81-year-old female from [facility], presented with generalized weakness, failure to thrive for several days, was found to have anemia, down to 7.9, dehydrated, and lethargic. The patient was admitted to [facility] for further care. Currently calm in bed, slightly confused, no complaint otherwise. REVIEW OF SYSTEMS: No chest pain or shortness of breath. No nausea, vomiting, or diarrhea. PAST MEDICAL HISTORY: Psych history and GERD. PAST SURGICAL HISTORY: None. MEDICATIONS: Tylenol, morphine, MiraLAX, Zofran, Ativan, dextrose, Ambien, and Mylanta. ALLERGIES: Denied. SOCIAL HISTORY: No smoke. Positive alcohol. No intravenous drug abuse. FAMILY HISTORY: Noncontributory. PHYSICAL EXAMINATION: GENERAL: Calm in bed, oriented x1, in no acute distress. VITAL SIGNS: Temperature is 98, pulse 72, respirations 20, and blood pressure 126/72. CARDIOVASCULAR: No murmurs. LUNGS: Distant and clear. ABDOMEN: Bowel sounds are positive. Nontender and nondistended. EXTREMITIES: No clubbing, cyanosis, or edema. NEUROLOGIC: The patient moves all extremities, but slightly weak. LABORATORY DATA: Lab exam show hemoglobin 7.9, otherwise CBC is normal. Potassium 3.4, chloride 108, and BUN 35. Albumin 2.3. INR is 1 and PTT 26. Urinalysis show 1+ protein, otherwise normal. ASSESSMENT: 1. Generalized weakness. 2. Failure to thrive. 3. Anemia. 4. Malnutrition. 5. Dehydration. 6. Psychiatric history. 7. Gastroesophageal reflux disease. 8. Insomnia. PLAN: Continue pre-medications. OT, PT, and dietary followup. Psych treatment. CBC and BMP in the morning. Transfuse p.r.n. Dr. Dennis, Dr. Huggins, Dr. Johnson, and Dr. Brand to consult. Pio Webb D.O. DR: OLYA JOB#: [id number] CC:
[2017-05-17 16:55] LABS: EOSINOPHILS % (MANUAL) 3 % (0-3); LYMPHOCYTES % (MANUAL) 8 % (20-45); NEUTROPHILS % (MANUAL) 81 % (45-75); TOTAL CELLS COUNTED 100
[2017-05-17 16:56] LABS: BAND NEUTROPHILS % (MANUAL) 0 % (0-8); BASOPHILS % (MANUAL) 0 % (0-2); PLATELET ESTIMATE ADEQUATE
[2017-05-17 16:57] LABS: ANISOCYTOSIS 1+; PLATELET MORPHOLOGY NORMAL; POLYCHROMASIA 1+
[2017-05-17 16:58] LABS: PATH BLOOD SMEAR/OMC SENT TO PATHOLOGIST
[2017-05-17] MEDS ORDERED: Morphine Sulfate 2mg/ml Inj IVP PRN (17:00)
[2017-05-17] MEDS ORDERED: Mylanta II UD 30ml ORAL PRN (17:30)
[2017-05-17] MEDS: LORazepam Inj 2mg/ml 1ml IV PRN (18:27)
[2017-05-17] MEDS: Iron Sucrose 100 MG in NS 55 ML IV SCH (20:26)
[2017-05-17] MEDS: Pantoprazole Inj IVP SCH (20:26)
[2017-05-17] MEDS ORDERED: Pantoprazole Inj IVP SCH (21:00)
[2017-05-17] MEDS ORDERED: Iron Sucrose 100 MG in NS 55 ML IV SCH (21:00)
--- NOTE | 2017-05-17 23:15 | Consultation ---
DATE OF CONSULTATION: 05/17/2017 NEPHROLOGY CONSULTATION CONSULTING PHYSICIAN: Olive Johnson M.D. REFERRING PHYSICIAN: Pio Webb D.O. REASON FOR CONSULTATION: Persistent hypokalemia, dehydration, and malnutrition. HISTORY OF PRESENT ILLNESS: The patient is an 81-year-old very pleasant female with past medical history significant for history of dementia. She was brought into [facility] after she refused to eat for the past 3 days. Upon arrival in ER, the patient was found to have low hemoglobin of 7.8, although here vital signs were okay. The patient was mildly tachycardic and hypotensive. She had temperature of 98 degrees, pulse of 88, respiratory rate of 18, and blood pressure was 94/61. The patient was admitted on the monitored bed, received transfusion, but the patient found to have persistent hypokalemia and decreased oral intake. I was called for management of renal disease and electrolyte imbalance. PAST MEDICAL HISTORY: History of dementia and history of hypertension. PAST SURGICAL HISTORY: None. MEDICATIONS: Home medications are includin. MVI. 2. Protonix. 3. Ambien. ALLERGIES: No known drug allergies. SOCIAL HISTORY: [facility]. There is no history of tobacco, alcohol, or drug use. FAMILY HISTORY: Noncontributory. REVIEW OF SYSTEMS: GENERAL: She is complaining of generalized weakness. Denies any fever, chills, or night sweats. HEAD AND NECK: Denies any dysphagia, odynophagia, blurry vision, headache, or neck stiffness. PULMONARY: No shortness of breath, cough, or sputum. CARDIOVASCULAR: Denies any chest pain or palpitations. GASTROINTESTINAL: Denied any nausea, vomiting, diarrhea, or hematemesis. She has decreased oral intake. GENITOURINARY: No dysuria, frequency, or hematuria. Currently, she has a Vicente catheter. This morning, when I visited her, she was receiving a unit of blood. PHYSICAL EXAMINATION: VITAL SIGNS: The patient has temperature of 98 degrees, blood pressure of 120/70, pulse rate of 74, and respiratory rate of 18. HEAD AND NECK: No JVP. No LAD. Sclerae are pale. Extraocular movements intact. Pupils are reactive to light and accommodation. LUNGS: Clear to auscultation. CARDIAC: Regular rate and rhythm. S1 and S2. No murmur. No rub. ABDOMEN: Soft, nontender, and nondistended. EXTREMITIES: No edema. No clubbing. No cyanosis. LABORATORY AND DIAGNOSTIC DATA: Lab value revealed WBC count of 7.5, hemoglobin of 9.2, hematocrit of 29, and platelet count of 186,000. Chemistry revealed sodium 141, potassium 3.2, chloride 108, bicarbonate 24, BUN of 35, creatinine of 1, and glucose of 87. Iron of 13, saturation of 5. AST of 24, ALT of 15, and alkaline phosphatase of 51. Total protein of 6.2. Albumin of 2.3. Chest x-ray is within normal limit. UA revealed specific gravity of 1.015, pH of 5, protein 1+, WBC 0 to 2, and RBC 0 to 2. ASSESSMENT: 1. Persistent hyponatremia. 2. Check the magnesium level. 3. Prerenal azotemia and dehydration. 4. Proteinuria. 5. Severe anemia. 6. Malnutrition. PLAN: Plan for the patient to obtain random urine culture and creatinine ratio to calculate the proteinuria. Check the urine sodium and creatinine to calculate the fraction of excretion of sodium. IV fluids. Check the urine potassium level. Check the prealbumin level for evaluation of nutritional status. Again, I would like to thank Dr. Webb for allowing me to participate in the care of this patient. Olive Johnson M.D. DR: Kojo JOB#: [id number] CC:
[2017-05-17] MEDS ORDERED: Zolpidem 5mg tab ORAL PRN (23:30)
[2017-05-17] MEDS ORDERED: Miralax 17gm pkt ORAL PRN (23:30)
[2017-05-18] VITALS (10 sets, daily range): BP systolic 89–139; BP diastolic 48–74
[2017-05-18 06:36] LABS: BASOPHILS % (AUTO) 0.8 % (0.0-2.0); EOSINOPHILS % (AUTO) 2.3 % (0.0-3.0); LYMPHOCYTES % (AUTO) 13.5 % (20.0-45.0); MEAN CORPUSCULAR HEMOGLOBIN 26.3 PG (27.0-31.0); MEAN CORPUSCULAR HGB CONC 32.2 G/DL (32.0-36.0); MEAN CORPUSCULAR VOLUME 82 FL (80-99); MEAN PLATELET VOLUME 8.2 FL (6.5-10.1); MONOCYTES % (AUTO) 8.3 % (1.0-10.0); NEUTROPHILS % (AUTO) 75.2 % (45.0-75.0); PLATELET COUNT 171 K/UL (150-450); RED BLOOD COUNT 3.64 M/UL (4.20-5.40); RED CELL DISTRIBUTION WIDTH 17.8 % (11.6-14.8); WHITE BLOOD COUNT 6.7 K/UL (4.8-10.8)
[2017-05-18] MEDS ORDERED: NS 500ML IV ONE (06:40)
--- NOTE | 2017-05-18 06:42 | Pre-Procedure Note/Attestation ---
Pre-Procedure Note/Attestation Complete Prior to Procedure Planned Procedure: not applicable Procedure Narrative: egd Indications for Procedure Pre-Operative Diagnosis: cirrhosis, anemia Attestation I attest that I discussed the nature of the procedure; its benefits; risks and complications; and alternatives (and the risks and benefits of such alternatives ), prior to the procedure, with the patient (or the patient's legal sales representative education courses). I attest that, if there was a reasonable possibility of needing a blood transfusion, the patient (or the patient's legal sales representative education courses) was given the [facility] standardized written summary, pursuant to the [employer] Blood Safety Act ([place] Health and Safety Code # 1645, as amended). I attest that I re-evaluated the patient just prior to the surgery and that there has been no change in the patient's H&P, except as documented below: SHRAVAN JUAREZ May 18, 2017 06:42
[2017-05-18 06:47] LABS: INR 1.1 (0.9-1.1); PROTHROMBIN TIME 11.6 SEC (9.30-11.50)
[2017-05-18 06:50] LABS: MAGNESIUM 1.7 MG/DL (1.8-2.4); PHOSPHORUS 2.4 MG/DL (2.5-4.9)
--- NOTE | 2017-05-18 06:51 | General Progress Note ---
Assessment/Plan Problem List: (1) Anemia ICD Codes: D64.9 - Anemia, unspecified SNOMED: 119507069 (2) Advanced dementia ICD Codes: F03.90 - Unspecified dementia without behavioral disturbance SNOMED: 88390840 (3) Failure to thrive SNOMED: 67797517 (4) ATN (acute tubular necrosis) ICD Codes: N17.0 - Acute kidney failure with tubular necrosis SNOMED: 32906139 (5) Iron deficiency ICD Codes: E61.1 - Iron deficiency SNOMED: 77885293 (6) Cirrhosis ICD Codes: K74.60 - Unspecified cirrhosis of liver SNOMED: 67044657 Status: stable, progressing Assessment/Plan cbc bmp am dc if clear by gi Subjective Constitutional: Reports: weakness Allergies: Coded Allergies: No Known Allergies (Unverified , 05/16/17) All Systems: reviewed and negative except above Subjective sleepy calm Objective Last 24 Hour Vital Signs Date Time Temp Pulse Resp B/P (MAP) Pulse Ox O2 Delivery O2 Flow Rate FiO2 05/18/17 04:00 97.9 78 18 114/56 97 Room Air 05/18/17 00:00 97.7 75 18 105/67 95 Room Air 05/17/17 19:59 98.2 83 20 121/66 96 Room Air 05/17/17 15:22 97.5 81 18 122/54 97 Room Air 05/17/17 12:00 75 05/17/17 11:30 98.1 74 18 109/58 97 Room Air 05/17/17 08:07 96.8 90 18 120/71 98 Room Air 05/17/17 08:00 74 Laboratory Tests 05/17/17 14:50: White Blood Count 7.5, Red Blood Count 3.56L, Hemoglobin 9.2L, Hematocrit 29.1L , Mean Corpuscular Volume 82, Mean Corpuscular Hemoglobin 25.9L, Mean Corpuscular Hemoglobin Concent 31.7L, Red Cell Distribution Width 17.8H, Platelet Count 183, Mean Platelet Volume 8.4, Neutrophils (%) (Auto) 82.9H, Lymphocytes (%) (Auto) 7.9L, Monocytes (%) (Auto) 7.5, Eosinophils (%) (Auto) 1.1, Basophils (%) (Auto) 0.6, Differential Total Cells Counted 100, Neutrophils % (Manual) 81H, Lymphocytes % (Manual) 8L, Monocytes % (Manual) 8, Eosinophils % (Manual) 3, Basophils % (Manual) 0, Band Neutrophils 0, Platelet Estimate Adequate, Platelet Morphology Normal, Polychromasia 1+, Anisocytosis 1+ , Erythrocyte Sedimentation Rate 71H, Reticulocyte Count 1.0 05/18/17 05:20: White Blood Count 6.7, Red Blood Count 3.64L, Hemoglobin 9.6L, Hematocrit 29.7L , Mean Corpuscular Volume 82, Mean Corpuscular Hemoglobin 26.3L, Mean Corpuscular Hemoglobin Concent 32.2, Red Cell Distribution Width 17.8H, Platelet Count 171, Mean Platelet Volume 8.2, Neutrophils (%) (Auto) 75.2H, Lymphocytes (%) (Auto) 13.5L, Monocytes (%) (Auto) 8.3, Eosinophils (%) (Auto) 2.3, Basophils (%) (Auto) 0.8, Prothrombin Time 11.6H, Prothromb Time International Ratio 1.1, Activated Partial Thromboplast Time 27, Sodium Level [ Pending], Potassium Level [Pending], Chloride Level [Pending], Carbon Dioxide Level [Pending], Blood Urea Nitrogen [Pending], Creatinine [Pending], Estimat Glomerular Filtration Rate [Pending], Glucose Level [Pending], Calcium Level [ Pending], Phosphorus Level [Pending], Magnesium Level [Pending], Total Bilirubin [Pending], Aspartate Amino Transf (AST/SGOT) [Pending], Alanine Aminotransferase (ALT/SGPT) [Pending], Alkaline Phosphatase [Pending], Total Protein [Pending], Albumin [Pending], Globulin [Pending] Height (Feet): 5 Height (Inches): 2.00 Weight (Pounds): 105 General Appearance: lethargic EENT: normal ENT inspection Neck: normal alignment Cardiovascular: normal peripheral pulses, normal rate, regular rhythm Respiratory/Chest: chest wall non-tender, lungs clear, normal breath sounds Abdomen: normal bowel sounds, non tender, soft Extremities: normal inspection Edema: no edema noted Arm (L), no edema noted Arm (R), no edema noted Leg (L), no edema noted Leg (R), no edema noted Pedal (L), no edema noted Pedal (R), no edema noted Generalized Neurologic: motor weakness Skin: normal pigmentation, warm/dry MEG RAUSCH May 18, 2017 06:51
[2017-05-18] MEDS ORDERED: Lidocaine 1% MPF 10mg/ml 5ml ONE (07:00)
[2017-05-18] MEDS ORDERED: LR 1000ml ONE (07:00)
[2017-05-18] MEDS ORDERED: Propofol 200mg/20ml IV ONE (07:00)
[2017-05-18 07:04] LABS: ALANINE AMINOTRANSFERASE 14 U/L (12-78); ALBUMIN/GLOBULIN RATIO 0.6 (1.0-2.7); ANION GAP 9 mmol/L (5-15); ASPARTATE AMINO TRANSFERASE 25 U/L (15-37); CARBON DIOXIDE 23 MMOL/L (21-32); CHLORIDE 107 MMOL/L (98-107); CREATININE 0.7 MG/DL (0.55-1.30); POTASSIUM 3.5 MMOL/L (3.5-5.1); SODIUM 139 MMOL/L (136-145); TOTAL PROTEIN 6.1 G/DL (6.4-8.2)
[2017-05-18] MEDS ORDERED: LR 1000ml 1,000 ML IVLG SCH (07:06)
--- NOTE | 2017-05-18 07:06 | Anethesia Preoperative Eval ---
Anesthesia Pre-op PMH/ROS General Date of Evaluation: May 18, 2017 Anesthesiologist: Tay ASA Score: ASA 4 Mallampati Score Class I : Soft palate, uvula, fauces, pillars visible Class II: Soft palate, uvula, fauces visible Class III: Soft palate, base of uvula visible Class IV: Only hard plate visible Mallampati Classification: Class II Surgeon: Joseluis Diagnosis: Barretts Esophagus Surgical Procedure: EGD with BX Anesthesia History: none Family History: no anesthesia problems Allergies: Coded Allergies: No Known Allergies (Unverified , 05/16/17) Medications: see eMAR Past Medical History Cardiovascular: Reports: HTN, CAD - Unstable Angina Gastrointestinal/Genitourinary: Reports: other - Cirrhosis, Barretts Esophagus , Hiatal Hernia, Esophagael CA Neurologic/Psychiatric: Reports: dementia Hematology/Immune: Reports: other - Esophagael CA PSxH Narrative: EGD Anesthesia Pre-op Phys. Exam Physician Exam Last Vital Signs Date Time Temp Pulse Resp B/P (MAP) Pulse Ox O2 Delivery O2 Flow Rate FiO2 05/18/17 04:00 97.9 78 18 114/56 97 Room Air Constitutional: NAD Neurologic: CN 2-12 intact Cardiovascular: RRR Respiratory: CTA Gastrointestinal: S/NT/ND Airway Exam Mallampati Score: Class II MO: limited ROM: limited Teeth: missing, intact Anesthesia Pre-op A/P Labs Hematology Test 05/17/17 14:50 05/18/17 05:20 White Blood Count 7.5 K/UL (4.8-10.8) 6.7 K/UL (4.8-10.8) Red Blood Count 3.56 M/UL (4.20-5.40) L 3.64 M/UL (4.20-5.40) L Hemoglobin 9.2 G/DL (12.0-16.0) L 9.6 G/DL (12.0-16.0) L Hematocrit 29.1 % (37.0-47.0) L 29.7 % (37.0-47.0) L Mean Corpuscular Volume 82 FL (80-99) 82 FL (80-99) Mean Corpuscular Hemoglobin 25.9 PG (27.0-31.0) L 26.3 PG (27.0-31.0) L Mean Corpuscular Hemoglobin Concent 31.7 G/DL (32.0-36.0) L 32.2 G/DL (32.0-36.0) Red Cell Distribution Width 17.8 % (11.6-14.8) H 17.8 % (11.6-14.8) H Platelet Count 183 K/UL (150-450) 171 K/UL (150-450) Mean Platelet Volume 8.4 FL (6.5-10.1) 8.2 FL (6.5-10.1) Neutrophils (%) (Auto) 82.9 % (45.0-75.0) H 75.2 % (45.0-75.0) H Lymphocytes (%) (Auto) 7.9 % (20.0-45.0) L 13.5 % (20.0-45.0) L Monocytes (%) (Auto) 7.5 % (1.0-10.0) 8.3 % (1.0-10.0) Eosinophils (%) (Auto) 1.1 % (0.0-3.0) 2.3 % (0.0-3.0) Basophils (%) (Auto) 0.6 % (0.0-2.0) 0.8 % (0.0-2.0) Differential Total Cells Counted 100 Neutrophils % (Manual) 81 % (45-75) H Lymphocytes % (Manual) 8 % (20-45) L Monocytes % (Manual) 8 % (1-10) Eosinophils % (Manual) 3 % (0-3) Basophils % (Manual) 0 % (0-2) Band Neutrophils 0 % (0-8) Platelet Estimate Adequate Platelet Morphology Normal Polychromasia 1+ Anisocytosis 1+ Erythrocyte Sedimentation Rate 71 MM/HR (0-42) H Reticulocyte Count 1.0 % (0.0-2.0) Coagulation Test 05/18/17 05:20 Prothrombin Time 11.6 SEC (9.30-11.50) H Prothromb Time International Ratio 1.1 (0.9-1.1) Activated Partial Thromboplast Time 27 SEC (23-33) Chemistry Test 05/18/17 05:20 Sodium Level Pending Potassium Level Pending Chloride Level Pending Carbon Dioxide Level Pending Blood Urea Nitrogen Pending Creatinine Pending Estimat Glomerular Filtration Rate Pending Glucose Level Pending Calcium Level Pending Phosphorus Level 2.4 MG/DL (2.5-4.9) L Magnesium Level 1.7 MG/DL (1.8-2.4) L Total Bilirubin Pending Aspartate Amino Transf (AST/SGOT) Pending Alanine Aminotransferase (ALT/SGPT) Pending Alkaline Phosphatase Pending Total Protein Pending Albumin Pending Globulin Pending Risk Assessment & Plan Assessment: ASA 4 Plan: GA Status Change Before Surgery: Augustine Meneses MD May 18, 2017 07:06
--- NOTE | 2017-05-18 07:07 | Endoscopy Procedure Note ---
Endoscopy Procedure Note Indication for Procedure: anemia Procedures Performed: EGD Operative Findings/Diagnosis: esoph ulcer Specimen: yes Pt Tolerated Procedure Well: Yes Estimated Blood Loss: none Anesthesiologist: anton Anesthesia: MAC Implant(s) used?: No 50 yrs or older w/o bx or poly: Not Applicable 10yrs. F/U not recommended: Not Applicable SHRAVAN JUAREZ May 18, 2017 07:07
--- NOTE | 2017-05-18 07:07 | Immediate Post-Op Evaluation ---
Immediate Post-Op Evalulation Immediate Post-Op Evalulation Procedure: EGD with BX Date of Evaluation: May 18, 2017 Time of Evaluation: 07:27 IV Fluids: 300 LR Blood Products: 0 Estimated Blood Loss: 8 Urinary Output: 0 Blood Pressure Systolic: 84 Blood Pressure Diastolic: 50 Pulse Rate: 65 Respiratory Rate: 16 O2 Sat by Pulse Oximetry: 100 Temperature (Fahrenheit): 97.8 Pain Score (1-10): 1 Nausea: No Vomiting: No Complications 0 Patient Status: awake, reacts, patent, none Hydration Status: adequate Augustine Cross MD May 18, 2017 07:07
--- NOTE | 2017-05-18 07:09 | 48 Hour Post Anesthesia Eval ---
Post Anesthesia Evaluation Procedure: EGD with BX Date of Evaluation: May 18, 2017 Time of Evaluation: 09:31 Blood Pressure Systolic: 138 0: 98 Pulse Rate: 99 Respiratory Rate: 18 Temperature (Fahrenheit): 98.3 O2 Sat by Pulse Oximetry: 99 Airway: patent Nausea: No Vomiting: No Pain Intensity: 1 Hydration Status: adequate Cardiopulmonary Status: Stable Mental Status/LOC: patient returned to baseline Follow-up Care/Observations: 0 Post-Anesthesia Complications: 0 Follow-up care needed: N/A Augustine Cross MD May 18, 2017 07:09
[2017-05-18] MEDS ORDERED: fentaNYL 100 mcg/2 mL IV PRN (07:15)
[2017-05-18] MEDS ORDERED: Metoclopramide 10mg/2ml Inj IVP PRN (07:15)
[2017-05-18] MEDS ORDERED: Atropine Inj 1mg/10ml Syr IV PRN (07:15)
[2017-05-18] MEDS ORDERED: Ketorolac 60mg Inj IV PRN (07:15)
[2017-05-18] MEDS ORDERED: LORazepam Inj 2mg/ml 1ml IV PRN (07:15)
[2017-05-18] MEDS ORDERED: Hydromorphone 0.5mg/0.5ml inj IVP PRN (07:15)
[2017-05-18] MEDS ORDERED: Midazolam 2mg/2ml Inj IVP PRN (07:15)
[2017-05-18] MEDS ORDERED: Norco 5mg/325mg tab ORAL PRN (07:15)
[2017-05-18] MEDS ORDERED: Ketorolac 30mg Inj IV PRN (07:15)
[2017-05-18] MEDS ORDERED: Norco 7.5mg/325mg tab ORAL PRN (07:15)
[2017-05-18] MEDS ORDERED: DiphenhydrAMINE 50mg/ml Inj IVP PRN (07:15)
[2017-05-18] MEDS ORDERED: oxyCODONE HCL/Acetaminophen 5/325mg ORAL PRN (07:15)
--- NOTE | 2017-05-18 07:48 | Nephrology Progress Note ---
Assessment/Plan Assessment 1. Persistent hyponatremia. 2. Check the magnesium level. 3. Prerenal azotemia and dehydration. 4. Proteinuria. 5. Severe anemia. 6. Malnutrition. Plan replace mg monitoring renal function avoid NSAID replace electrolyte as need it nutritional support Subjective Constitutional: Reports: no symptoms HEENT: Reports: no symptoms Genitourinary: Reports: no symptoms Neurologic/Psychiatric: Reports: no symptoms Subjective s/p endoscopy no complaints Objective Objective Last 24 Hour Vital Signs Date Time Temp Pulse Resp B/P (MAP) Pulse Ox O2 Delivery O2 Flow Rate FiO2 05/18/17 07:30 57 15 131/69 98 Room Air 05/18/17 07:26 58 13 109/48 100 Nasal Cannula 3.0 05/18/17 07:20 61 12 92/50 100 Nasal Cannula 3.0 05/18/17 07:19 99 18 99 05/18/17 07:18 65 16 100 05/18/17 07:16 97.8 66 14 89/49 100 Nasal Cannula 3.0 05/18/17 04:00 97.9 78 18 114/56 97 Room Air 05/18/17 00:00 97.7 75 18 105/67 95 Room Air 05/17/17 19:59 98.2 83 20 121/66 96 Room Air 05/17/17 15:22 97.5 81 18 122/54 97 Room Air 05/17/17 12:00 75 05/17/17 11:30 98.1 74 18 109/58 97 Room Air 05/17/17 08:07 96.8 90 18 120/71 98 Room Air 05/17/17 08:00 74 Intake and Output 05/18/17 05/19/17 19:00 07:00 Intake Total 350 ml Output Total 0 ml Balance 350 ml IV Total 350 ml Estimated Blood Loss 0 ml Laboratory Tests 05/17/17 14:50: White Blood Count 7.5, Red Blood Count 3.56L, Hemoglobin 9.2L, Hematocrit 29.1L , Mean Corpuscular Volume 82, Mean Corpuscular Hemoglobin 25.9L, Mean Corpuscular Hemoglobin Concent 31.7L, Red Cell Distribution Width 17.8H, Platelet Count 183, Mean Platelet Volume 8.4, Neutrophils (%) (Auto) 82.9H, Lymphocytes (%) (Auto) 7.9L, Monocytes (%) (Auto) 7.5, Eosinophils (%) (Auto) 1.1, Basophils (%) (Auto) 0.6, Differential Total Cells Counted 100, Neutrophils % (Manual) 81H, Lymphocytes % (Manual) 8L, Monocytes % (Manual) 8, Eosinophils % (Manual) 3, Basophils % (Manual) 0, Band Neutrophils 0, Platelet Estimate Adequate, Platelet Morphology Normal, Polychromasia 1+, Anisocytosis 1+ , Erythrocyte Sedimentation Rate 71H, Reticulocyte Count 1.0 05/18/17 05:20: White Blood Count 6.7, Red Blood Count 3.64L, Hemoglobin 9.6L, Hematocrit 29.7L , Mean Corpuscular Volume 82, Mean Corpuscular Hemoglobin 26.3L, Mean Corpuscular Hemoglobin Concent 32.2, Red Cell Distribution Width 17.8H, Platelet Count 171, Mean Platelet Volume 8.2, Neutrophils (%) (Auto) 75.2H, Lymphocytes (%) (Auto) 13.5L, Monocytes (%) (Auto) 8.3, Eosinophils (%) (Auto) 2.3, Basophils (%) (Auto) 0.8, Prothrombin Time 11.6H, Prothromb Time International Ratio 1.1, Activated Partial Thromboplast Time 27, Sodium Level 139, Potassium Level 3.5, Chloride Level 107, Carbon Dioxide Level 23, Anion Gap 9, Blood Urea Nitrogen 18, Creatinine 0.7, Estimat Glomerular Filtration Rate , Glucose Level 84, Calcium Level 8.0L, Phosphorus Level 2.4L, Magnesium Level 1.7L, Total Bilirubin 1.0, Aspartate Amino Transf (AST/SGOT) 25, Alanine Aminotransferase (ALT/SGPT) 14, Alkaline Phosphatase 52, Total Protein 6.1L, Albumin 2.2L, Globulin 3.9, Albumin/Globulin Ratio 0.6L Height (Feet): 5 Height (Inches): 2.00 Weight (Pounds): 105 Objective HEAD AND NECK: No JVP. No LAD. Sclerae are pale. Extraocular movements intact. Pupils are reactive to light and accommodation. LUNGS: Clear to auscultation. CARDIAC: Regular rate and rhythm. S1 and S2. No murmur. No rub. ABDOMEN: Soft, nontender, and nondistended. EXTREMITIES: No edema. No clubbing. No cyanosis. BAHMANI,PAMELA May 18, 2017 07:48
[2017-05-18] MEDS: Pantoprazole Inj IVP SCH ×2 (09:11→22:00)
[2017-05-18] MEDS ORDERED: Tubing IV Secondary IV ONE (10:34)
[2017-05-18] MEDS ORDERED: NS 275ml ONE (10:34)
[2017-05-18] MEDS ORDERED: Potassium Phosphate 30 MM in NS 275 ML IV ONE (11:30)
--- NOTE | 2017-05-18 12:09 | Diagnostic Imaging Report ---
Clinical Indication: Cough, possible mass, anemia Technique: IV administration nonionic contrast. Spiral acquisition obtained through the chest. Multiplanar reconstructions generated. Total dose length product 569 mGycm. CTDIvol(s) 8, 64, 15 mGy. Dose reduction achieved using automated exposure control Comparison: Chest radiograph 05/16/2017 Findings: There is very slight image degradation on the lung window images by respiratory motion artifact. Some atelectatic changes with resultant volume loss are seen at the base of the left lower lobe. Minimal pleural-based opacity is seen in the right costophrenic sulcus. There are also some posterior dependent atelectatic changes on the right. No infiltrates, effusions, masses, or congestion demonstrated. There is a moderate-sized sliding-type hiatal hernia, also reported on recent CT scan. There is some thickening/edema of the wall of most of the thoracic esophagus, particularly distally. 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 The heart is borderline enlarged. No pericardial effusion is evident. No mediastinal or hilar mass or adenopathy. No axillary or chest wall mass or adenopathy demonstrated. There are fairly extensive degenerative changes of the thoracic spine. There is a mild superior endplate and anterior wedge compression fracture of the T7 vertebral body. Equivocal minimal compression fracture deformity of the T9 vertebral body also noted The visualized abdominal viscera are remarkable for cholelithiasis and evidence of hepatic cirrhosis. 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 Nonspecific, could indicate esophagitis. 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 Consider MRI if these are considered clinically relevant Large complex duodenal diverticulum incidentally noted Hepatic cirrhosis and cholelithiasis, also previously reported The CT scanner at [facility] is accredited by the [employer] and the scans are performed using protocols designed to limit radiation exposure to as low as reasonably achievable to attain images of sufficient resolution adequate for diagnostic evaluation.
[2017-05-18] MEDS ORDERED: Morphine 5mg/2.5ml Oral Soln ORAL PRN (16:15)
--- NOTE | 2017-05-18 16:38 | Infectious Diseases Prog Note ---
Assessment/Plan Problems: (1) Failure to thrive Assessment & Plan: rule out infectious etiology , will screen for HIV and Syphilis, and order hepatitis panels. check TSH (2) Cirrhosis Assessment & Plan: continue supportive care, avoid hepatotoxic meds, rule out hepatitis as an etiology (3) Advanced dementia Assessment & Plan: continue supportive care (4) Anemia Assessment & Plan: rule out GI blood loss, S/P endoscopy , GI is following Subjective Allergies: Coded Allergies: No Known Allergies (Unverified , 05/16/17) Objective Vital Signs Last 24 Hour Vital Signs Date Time Temp Pulse Resp B/P (MAP) Pulse Ox O2 Delivery O2 Flow Rate FiO2 05/18/17 16:29 98.7 87 19 128/74 98 Room Air 05/18/17 11:45 98.2 74 18 127/68 97 Room Air 05/18/17 07:45 97.6 63 14 139/57 98 Room Air 05/18/17 07:30 57 15 131/69 98 Room Air 05/18/17 07:26 58 13 109/48 100 Nasal Cannula 3.0 05/18/17 07:20 61 12 92/50 100 Nasal Cannula 3.0 05/18/17 07:19 99 18 99 05/18/17 07:18 65 16 100 05/18/17 07:16 97.8 66 14 89/49 100 Nasal Cannula 3.0 05/18/17 04:00 97.9 78 18 114/56 97 Room Air 05/18/17 00:00 97.7 75 18 105/67 95 Room Air 05/17/17 19:59 98.2 83 20 121/66 96 Room Air Height (Feet): 5 Height (Inches): 2.00 Weight (Pounds): 105 Microbiology Date/Time Source Procedure Growth Status 05/16/17 21:10 Blood Blood Culture - Preliminary NO GROWTH AFTER 24 HOURS Resulted 05/16/17 20:55 Blood Blood Culture - Preliminary NO GROWTH AFTER 24 HOURS Resulted Laboratory Tests Test 05/18/17 05:20 White Blood Count 6.7 K/UL (4.8-10.8) Red Blood Count 3.64 M/UL (4.20-5.40) L Hemoglobin 9.6 G/DL (12.0-16.0) L Hematocrit 29.7 % (37.0-47.0) L Mean Corpuscular Volume 82 FL (80-99) Mean Corpuscular Hemoglobin 26.3 PG (27.0-31.0) L Mean Corpuscular Hemoglobin Concent 32.2 G/DL (32.0-36.0) Red Cell Distribution Width 17.8 % (11.6-14.8) H Platelet Count 171 K/UL (150-450) Mean Platelet Volume 8.2 FL (6.5-10.1) Neutrophils (%) (Auto) 75.2 % (45.0-75.0) H Lymphocytes (%) (Auto) 13.5 % (20.0-45.0) L Monocytes (%) (Auto) 8.3 % (1.0-10.0) Eosinophils (%) (Auto) 2.3 % (0.0-3.0) Basophils (%) (Auto) 0.8 % (0.0-2.0) Prothrombin Time 11.6 SEC (9.30-11.50) H Prothromb Time International Ratio 1.1 (0.9-1.1) Activated Partial Thromboplast Time 27 SEC (23-33) Sodium Level 139 MMOL/L (136-145) Potassium Level 3.5 MMOL/L (3.5-5.1) Chloride Level 107 MMOL/L (98-107) Carbon Dioxide Level 23 MMOL/L (21-32) Anion Gap 9 mmol/L (5-15) Blood Urea Nitrogen 18 mg/dL (7-18) Creatinine 0.7 MG/DL (0.55-1.30) Estimat Glomerular Filtration Rate mL/min (>60) Glucose Level 84 MG/DL (74-106) Calcium Level 8.0 MG/DL (8.5-10.1) L Phosphorus Level 2.4 MG/DL (2.5-4.9) L Magnesium Level 1.7 MG/DL (1.8-2.4) L Total Bilirubin 1.0 MG/DL (0.2-1.0) Aspartate Amino Transf (AST/SGOT) 25 U/L (15-37) Alanine Aminotransferase (ALT/SGPT) 14 U/L (12-78) Alkaline Phosphatase 52 U/L (46-116) Total Protein 6.1 G/DL (6.4-8.2) L Albumin 2.2 G/DL (3.4-5.0) L Globulin 3.9 g/dL Albumin/Globulin Ratio 0.6 (1.0-2.7) L Current Medications Medications (Trade) Dose Ordered Sig/Natalie Route PRN Reason Start Time Stop Time Status Last Admin Dose Admin Acetaminophen (Tylenol) 650 mg Q4H PRN ORAL fever 05/17/17 19:30 06/15/17 23:29 Al Hydroxide/Mg Hydroxide (Mylanta II) 30 ml Q6H PRN ORAL dyspepsia 05/17/17 17:30 06/15/17 23:29 Dextrose (Dextrose 50%) STAT PRN IV Hypoglycemia 05/17/17 23:30 06/15/17 23:29 Iron Sucrose 100 mg/Sodium Chloride 60 ml @ 240 mls/hr BEDTIME IV 05/17/17 21:00 05/21/17 21:01 05/17/17 20:26 Lorazepam (Ativan 2mg/ml 1ml) 0.5 mg Q4H PRN IV For Anxiety 05/17/17 19:30 05/23/17 23:29 05/17/17 18:27 Morphine Sulfate (Morphine 5mg/ 2.5ml Oral Soln) 3 mg Q4H PRN ORAL For Pain 05/18/17 16:15 06/17/17 16:14 Ondansetron HCl (Zofran) 4 mg Q6H PRN IVP Nausea & Vomiting 05/17/17 17:30 06/15/17 23:29 Pantoprazole (Protonix) 40 mg EVERY 12 HOURS IVP 05/17/17 21:00 06/16/17 20:59 05/18/17 09:11 Polyethylene Glycol (Miralax) 17 gm HSPRN PRN ORAL Constipation 05/17/17 23:30 06/15/17 23:29 Potassium Phosphate 30 mm/ Sodium Chloride 285 ml @ 47.5 mls/hr ONCE ONCE IV 05/18/17 11:30 05/18/17 17:29 05/18/17 12:57 Zolpidem Tartrate (Ambien) 5 mg HSPRN PRN ORAL Insomnia 05/17/17 23:30 05/23/17 23:29 Maximiliano Pierre M.D. May 18, 2017 16:38
--- NOTE | 2017-05-18 17:37 | Pulmonology Progress Note ---
Assessment/Plan Problems: (1) Anemia (2) ATN (acute tubular necrosis) (3) Advanced dementia (4) Failure to thrive Assessment/Plan anemia w/u received one unit of PRBC IV fluids GI f/u calorie count stool for OB check electrolytes med/surg Subjective ROS Limited/Unobtainable: No Constitutional: Reports: no symptoms Cardiovascular: Reports: no symptoms Allergies: Coded Allergies: No Known Allergies (Unverified , 05/16/17) Objective Last 24 Hour Vital Signs Date Time Temp Pulse Resp B/P (MAP) Pulse Ox O2 Delivery O2 Flow Rate FiO2 05/18/17 16:29 98.7 87 19 128/74 98 Room Air 05/18/17 11:45 98.2 74 18 127/68 97 Room Air 05/18/17 07:45 97.6 63 14 139/57 98 Room Air 05/18/17 07:30 57 15 131/69 98 Room Air 05/18/17 07:26 58 13 109/48 100 Nasal Cannula 3.0 05/18/17 07:20 61 12 92/50 100 Nasal Cannula 3.0 05/18/17 07:19 99 18 99 05/18/17 07:18 65 16 100 05/18/17 07:16 97.8 66 14 89/49 100 Nasal Cannula 3.0 05/18/17 04:00 97.9 78 18 114/56 97 Room Air 05/18/17 00:00 97.7 75 18 105/67 95 Room Air 05/17/17 19:59 98.2 83 20 121/66 96 Room Air Intake and Output 05/18/17 05/19/17 19:00 07:00 Intake Total 737.5 ml Output Total 0 ml Balance 737.5 ml IV Total 737.5 ml Estimated Blood Loss 0 ml General Appearance: WD/WN HEENT: normocephalic, atraumatic Respiratory/Chest: chest wall non-tender, lungs clear, normal breath sounds Breasts: no masses Cardiovascular: normal peripheral pulses, no JVD Abdomen: normal bowel sounds, soft, non tender Genitourinary: normal external genitalia Extremities: no cyanosis Skin: no rash Neurologic/Psychiatric: drying machine tender II-XII grossly normal, abnormal gait Lymphatic: no groin adenopathy Microbiology Date/Time Source Procedure Growth Status 05/16/17 21:10 Blood Blood Culture - Preliminary NO GROWTH AFTER 24 HOURS Resulted 05/16/17 20:55 Blood Blood Culture - Preliminary NO GROWTH AFTER 24 HOURS Resulted Laboratory Tests 05/18/17 05:20: White Blood Count 6.7, Red Blood Count 3.64L, Hemoglobin 9.6L, Hematocrit 29.7L , Mean Corpuscular Volume 82, Mean Corpuscular Hemoglobin 26.3L, Mean Corpuscular Hemoglobin Concent 32.2, Red Cell Distribution Width 17.8H, Platelet Count 171, Mean Platelet Volume 8.2, Neutrophils (%) (Auto) 75.2H, Lymphocytes (%) (Auto) 13.5L, Monocytes (%) (Auto) 8.3, Eosinophils (%) (Auto) 2.3, Basophils (%) (Auto) 0.8, Prothrombin Time 11.6H, Prothromb Time International Ratio 1.1, Activated Partial Thromboplast Time 27, Sodium Level 139, Potassium Level 3.5, Chloride Level 107, Carbon Dioxide Level 23, Anion Gap 9, Blood Urea Nitrogen 18, Creatinine 0.7, Estimat Glomerular Filtration Rate , Glucose Level 84, Calcium Level 8.0L, Phosphorus Level 2.4L, Magnesium Level 1.7L, Total Bilirubin 1.0, Aspartate Amino Transf (AST/SGOT) 25, Alanine Aminotransferase (ALT/SGPT) 14, Alkaline Phosphatase 52, Total Protein 6.1L, Albumin 2.2L, Globulin 3.9, Albumin/Globulin Ratio 0.6L Current Medications Medications (Trade) Dose Ordered Sig/Natalie Route PRN Reason Start Time Stop Time Status Last Admin Dose Admin Acetaminophen (Tylenol) 650 mg Q4H PRN ORAL fever 05/17/17 19:30 06/15/17 23:29 Al Hydroxide/Mg Hydroxide (Mylanta II) 30 ml Q6H PRN ORAL dyspepsia 05/17/17 17:30 06/15/17 23:29 Dextrose (Dextrose 50%) STAT PRN IV Hypoglycemia 05/17/17 23:30 06/15/17 23:29 Iron Sucrose 100 mg/Sodium Chloride 60 ml @ 240 mls/hr BEDTIME IV 05/17/17 21:00 05/21/17 21:01 05/17/17 20:26 Lorazepam (Ativan 2mg/ml 1ml) 0.5 mg Q4H PRN IV For Anxiety 05/17/17 19:30 05/23/17 23:29 05/17/17 18:27 Morphine Sulfate (Morphine 5mg/ 2.5ml Oral Soln) 3 mg Q4H PRN ORAL For Pain 05/18/17 16:15 06/17/17 16:14 Ondansetron HCl (Zofran) 4 mg Q6H PRN IVP Nausea & Vomiting 05/17/17 17:30 06/15/17 23:29 Pantoprazole (Protonix) 40 mg EVERY 12 HOURS IVP 05/17/17 21:00 06/16/17 20:59 05/18/17 09:11 Polyethylene Glycol (Miralax) 17 gm HSPRN PRN ORAL Constipation 05/17/17 23:30 06/15/17 23:29 Zolpidem Tartrate (Ambien) 5 mg HSPRN PRN ORAL Insomnia 05/17/17 23:30 05/23/17 23:29 SANDEEP PAIGE May 18, 2017 17:37
--- NOTE | 2017-05-18 21:00 | Consultation ---
DATE OF CONSULTATION: 05/18/2017 INFECTIOUS DISEASES CONSULTATION REQUESTING PHYSICIAN: Pio Webb D.O. REASON FOR CONSULTATION: Failure to thrive, rule out infectious etiology with liver cirrhosis, rule out hepatitis. HISTORY OF PRESENT ILLNESS: The patient is an 81-year-old female with past medical history of dementia, liver cirrhosis, and failure to thrive was brought in to [facility] for increased generalized weakness as well as decreased oral intake. She had a gradual onset of symptom. The patient has not been eating or drinking for three days in row so she was sent from the nursing facility for evaluation and management and possible tube feeding placement. The patient had history of liver cirrhosis, unclear etiology at this point. I was consulted by the primary provider to rule out infectious etiology of her failure to thrive and to rule out hepatitis. As of note, the patient is poor historian cannot provide any history. History was mainly obtained from the medical record. PAST MEDICAL HISTORY: Significant for hypertension, dementia, and malnutrition. PAST SURGICAL HISTORY: Negative. ALLERGIES: No known drug allergy. MEDICATIONS: Currently, she is on morphine, potassium, polyethylene glycol, Ambien, iron, sucrose, Protonix, Tylenol, Ativan, Mylanta, and Zofran. FAMILY HISTORY: Unable to obtain. SOCIAL HISTORY: She is a snf resident. No recent drugs, tobacco, or alcohol. REVIEW OF SYSTEMS: Unable to obtain, the patient is poor historian cannot provide good history. PHYSICAL EXAMINATION: VITAL SIGNS: Temperature 98.7, pulse 87, respiration 19, blood pressure 128/74, and saturation 98% on room air. GENERAL: Elderly female, lying in bed, comfortable, awake, alert, not in distress. HEENT: Normocephalic and atraumatic. Pupils are reactive to light. Moist oral mucosa. No exudate. NECK: Supple. No lymphadenopathy. CARDIOVASCULAR: Regular rate and rhythm. No murmur or gallop. LUNGS: Clear bilaterally. Diminished breathing sounds at the bases. No wheezing or rhonchi. ABDOMEN: Soft, nontender, and nondistended. Positive bowel sounds. No hepatosplenomegaly. No ascites. EXTREMITIES: No edema or cyanosis. SKIN: No rash or hives. LABORATORY DATA: Showed white count of 6.7, hemoglobin of 9.6, and platelet count of 171. BUN of 18 and creatinine of 0.7. AST of 25 and ALT of 14. Urinalysis was negative for nitrite or leukocyte esterase. MICROBIOLOGY: Blood culture x2 on 05/16/2017 negative for 24 hours. IMAGING: Chest x-ray on admission showed no acute process. CT scan of abdomen and pelvis showed hepatic cirrhosis, three esophageal varices, no acute abnormalities, moderate-sized sliding-type hiatal hernia, and bilateral basilar atelectasis. Chest CT scan showed moderate-sized sliding-type type hiatal hernia, edema thickening of the mid and distal esophagus wall nonspecific, could indicate esophagitis, three esophageal varices also previously reported, left lower lobe atelectatic changes with resultant, volume loss, dependent atelectatic change, and minimal pleural base opacity, likely atelectasis on the right. ASSESSMENT AND PLAN: 1. Failure to thrive, rule out infectious etiology. We will screen for human immunodeficiency virus and syphilis and order hepatitis panel. Check TSH. 2. Cirrhosis. Continue supportive care. Avoid hepatotoxic medicine. Rule out hepatitis as an etiology. 3. Advanced dementia. Continue supportive care. The patient need tube feeding. 4. Anemia, rule out gastrointestinal blood loss status post endoscopy. Gastrointestinal team is following. Monitor hemoglobin and hematocrit. Thank you for the consult. ID will continue to follow. Maximiliano Pierre M.D. DR: LEELA JOB#: [id number] CC:
[2017-05-18] MEDS: Iron Sucrose 100 MG in NS 55 ML IV SCH (21:59)
[2017-05-19] VITALS: BP 141/74
[2017-05-19] MEDS: LORazepam Inj 2mg/ml 1ml IV PRN (00:43)
[2017-05-19 04:00] VITALS: BP 124/85
[2017-05-19 07:40] LABS: BASOPHILS % (AUTO) 0.8 % (0.0-2.0); EOSINOPHILS % (AUTO) 6.6 % (0.0-3.0); LYMPHOCYTES % (AUTO) 13.4 % (20.0-45.0); MEAN CORPUSCULAR HEMOGLOBIN 27.2 PG (27.0-31.0); MEAN CORPUSCULAR HGB CONC 33.1 G/DL (32.0-36.0); MEAN CORPUSCULAR VOLUME 82 FL (80-99); MEAN PLATELET VOLUME 9.8 FL (6.5-10.1); MONOCYTES % (AUTO) 9.7 % (1.0-10.0); NEUTROPHILS % (AUTO) 69.5 % (45.0-75.0); PLATELET COUNT 194 K/UL (150-450); RED BLOOD COUNT 3.49 M/UL (4.20-5.40); RED CELL DISTRIBUTION WIDTH 18.2 % (11.6-14.8); WHITE BLOOD COUNT 5.9 K/UL (4.8-10.8)
[2017-05-19 07:51] LABS: ANION GAP 7 mmol/L (5-15); CALCIUM 7.8 MG/DL (8.5-10.1); CARBON DIOXIDE 24 MMOL/L (21-32); CHLORIDE 108 MMOL/L (98-107); CREATININE 0.9 MG/DL (0.55-1.30); POTASSIUM 3.9 MMOL/L (3.5-5.1); SODIUM 139 MMOL/L (136-145)
[2017-05-19 08:00] VITALS: BP 128/80
--- NOTE | 2017-05-19 08:11 | Pulmonology Progress Note ---
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 A lesion at about 19 cm from the incisors suspicious for malignancy, status post biopsy. 2. Long segments of Caputo's esophagus. 3. A large ulcer seen in the distal esophagus, status post biopsy. 4. A 5 cm hiatal hernia. 5. Gastritis, status post biopsy. 6. Duodenal diverticulum. Follow biopsy results. chest CT i- no mass shown If the biopsies are positive, we will get an Oncology consultation. GI cleared for dc psych follows diagnosed with encephalopathy started on Remeron dc plan as per PMD case discussed and evaluated by supervising physician Subjective Allergies: Coded Allergies: No Known Allergies (Unverified , 05/16/17) Subjective afenrile, no leukcoytosis HH remains at abselien Objective Last 24 Hour Vital Signs Date Time Temp Pulse Resp B/P (MAP) Pulse Ox O2 Delivery O2 Flow Rate FiO2 05/19/17 04:00 96.8 77 18 124/85 93 Room Air 05/19/17 00:00 97.9 74 18 141/74 95 Room Air 05/18/17 23:02 98.2 05/18/17 20:00 98.2 103 18 123/73 96 Room Air 05/18/17 16:29 98.7 87 19 128/74 98 Room Air 05/18/17 11:45 98.2 74 18 127/68 97 Room Air General Appearance: no acute distress, cachetic, other - bedridden frail elderly female HEENT: normocephalic, atraumatic, anicteric Respiratory/Chest: lungs clear Cardiovascular: normal rate, regular rhythm, no JVD Abdomen: soft, non tender Extremities: no edema Neurologic/Psychiatric: abnormal gait - bedridden , other - contracted, poorly resposnive Microbiology Date/Time Source Procedure Growth Status 05/16/17 21:10 Blood Blood Culture - Preliminary NO GROWTH AFTER 48 HOURS Resulted 05/16/17 20:55 Blood Blood Culture - Preliminary NO GROWTH AFTER 48 HOURS Resulted 05/17/17 00:40 Rectum VRE Culture - Final NO VANCOMYCIN RESISTANT ENTEROCOCCUS ... Complete Laboratory Tests 05/19/17 05:15: White Blood Count 5.9, Red Blood Count 3.49L, Hemoglobin 9.5L, Hematocrit 28.6L , Mean Corpuscular Volume 82, Mean Corpuscular Hemoglobin 27.2, Mean Corpuscular Hemoglobin Concent 33.1, Red Cell Distribution Width 18.2H, Platelet Count 194, Mean Platelet Volume 9.8, Neutrophils (%) (Auto) 69.5, Lymphocytes (%) (Auto) 13.4L, Monocytes (%) (Auto) 9.7, Eosinophils (%) (Auto) 6.6H, Basophils (%) (Auto) 0.8, Sodium Level 139, Potassium Level 3.9, Chloride Level 108H, Carbon Dioxide Level 24, Anion Gap 7, Blood Urea Nitrogen 13, Creatinine 0.9, Estimat Glomerular Filtration Rate , Glucose Level 78, Calcium Level 7.8L Current Medications Medications (Trade) Dose Ordered Sig/Natalie Route PRN Reason Start Time Stop Time Status Last Admin Dose Admin Acetaminophen (Tylenol) 650 mg Q4H PRN ORAL fever 05/17/17 19:30 06/15/17 23:29 Al Hydroxide/Mg Hydroxide (Mylanta II) 30 ml Q6H PRN ORAL dyspepsia 05/17/17 17:30 06/15/17 23:29 Dextrose (Dextrose 50%) STAT PRN IV Hypoglycemia 05/17/17 23:30 06/15/17 23:29 Iron Sucrose 100 mg/Sodium Chloride 60 ml @ 240 mls/hr BEDTIME IV 05/17/17 21:00 05/21/17 21:01 05/18/17 21:59 Lorazepam (Ativan 2mg/ml 1ml) 0.5 mg Q4H PRN IV For Anxiety 05/17/17 19:30 05/23/17 23:29 05/19/17 00:43 Morphine Sulfate (Morphine 5mg/ 2.5ml Oral Soln) 3 mg Q4H PRN ORAL For Pain 05/18/17 16:15 06/17/17 16:14 05/18/17 22:03 Ondansetron HCl (Zofran) 4 mg Q6H PRN IVP Nausea & Vomiting 05/17/17 17:30 06/15/17 23:29 Pantoprazole (Protonix) 40 mg EVERY 12 HOURS IVP 05/17/17 21:00 06/16/17 20:59 05/18/17 22:00 Polyethylene Glycol (Miralax) 17 gm HSPRN PRN ORAL Constipation 05/17/17 23:30 06/15/17 23:29 Zolpidem Tartrate (Ambien) 5 mg HSPRN PRN ORAL Insomnia 05/17/17 23:30 05/23/17 23:29 Andrew ButlerMaria Fareri Children'S HospitalKavya Braun NP May 19, 2017 08:11
[2017-05-19] MEDS: Pantoprazole Inj IVP SCH (09:49)
--- NOTE | 2017-05-19 10:05 | GI Progress Note ---
Assessment/Plan Problems: (1) Barretts esophagus ICD Codes: K22.70 - Caputo's esophagus without dysplasia SNOMED: 888429332 (2) Esophageal ulcer ICD Codes: K22.10 - Ulcer of esophagus without bleeding SNOMED: 45219605 (3) Advanced dementia ICD Codes: F03.90 - Unspecified dementia without behavioral disturbance SNOMED: 26674722 (4) Anemia ICD Codes: D64.9 - Anemia, unspecified SNOMED: 770639086 (5) Iron deficiency ICD Codes: E61.1 - Iron deficiency SNOMED: 26052293 (6) Cirrhosis ICD Codes: K74.60 - Unspecified cirrhosis of liver SNOMED: 67554208 (7) Failure to thrive SNOMED: 48738280 Status: stable Status Narrative Discussed with Dr. Huggins. Assessment/Plan CT AP reviewed >> Evidence of hepatic cirrhosis. Periesophageal varices. s/p EGD SUMMARY FINDINGS: 1. A lesion at about 19 cm from the incisors suspicious for malignancy, status post biopsy. 2. Long segments of Caputo's esophagus. 3. A large ulcer seen in the distal esophagus, status post biopsy. 4. A 5 cm hiatal hernia. 5. Gastritis, status post biopsy. 6. Duodenal diverticulum. RECOMMENDATIONS: 1. Check CEA level. 2. Follow biopsy results. 3. Consider chest CT if needed >> no mass shown 4. If the biopsies are positive, we will get an Oncology consultation. okay for DC per GI standpoint, fu with primary GI iron deficiency >> venofer monitor H&H, prn transfusions bowel regime ppi fu calorie count Subjective Gastrointestinal/Abdominal: Reports: no symptoms Subjective limited Objective Last 24 Hour Vital Signs Date Time Temp Pulse Resp B/P (MAP) Pulse Ox O2 Delivery O2 Flow Rate FiO2 05/19/17 08:00 97.8 83 18 128/80 97 05/19/17 04:00 96.8 77 18 124/85 93 Room Air 05/19/17 00:00 97.9 74 18 141/74 95 Room Air 05/18/17 23:02 98.2 05/18/17 20:00 98.2 103 18 123/73 96 Room Air 05/18/17 16:29 98.7 87 19 128/74 98 Room Air 05/18/17 11:45 98.2 74 18 127/68 97 Room Air Laboratory Tests Test 05/19/17 05:15 White Blood Count 5.9 K/UL (4.8-10.8) Red Blood Count 3.49 M/UL (4.20-5.40) L Hemoglobin 9.5 G/DL (12.0-16.0) L Hematocrit 28.6 % (37.0-47.0) L Mean Corpuscular Volume 82 FL (80-99) Mean Corpuscular Hemoglobin 27.2 PG (27.0-31.0) Mean Corpuscular Hemoglobin Concent 33.1 G/DL (32.0-36.0) Red Cell Distribution Width 18.2 % (11.6-14.8) H Platelet Count 194 K/UL (150-450) Mean Platelet Volume 9.8 FL (6.5-10.1) Neutrophils (%) (Auto) 69.5 % (45.0-75.0) Lymphocytes (%) (Auto) 13.4 % (20.0-45.0) L Monocytes (%) (Auto) 9.7 % (1.0-10.0) Eosinophils (%) (Auto) 6.6 % (0.0-3.0) H Basophils (%) (Auto) 0.8 % (0.0-2.0) Sodium Level 139 MMOL/L (136-145) Potassium Level 3.9 MMOL/L (3.5-5.1) Chloride Level 108 MMOL/L (98-107) H Carbon Dioxide Level 24 MMOL/L (21-32) Anion Gap 7 mmol/L (5-15) Blood Urea Nitrogen 13 mg/dL (7-18) Creatinine 0.9 MG/DL (0.55-1.30) Estimat Glomerular Filtration Rate mL/min (>60) Glucose Level 78 MG/DL (74-106) Calcium Level 7.8 MG/DL (8.5-10.1) L Height (Feet): 5 Height (Inches): 2.00 Weight (Pounds): 105 General Appearance: alert, thin Cardiovascular: normal rate Respiratory/Chest: normal breath sounds Abdominal Exam: non tender, soft Sridevi Rodney N.PGabi May 19, 2017 10:05
--- NOTE | 2017-05-19 10:15 | Procedure Note ---
DATE OF PROCEDURE: 05/18/2017 SURGEON: Floyd Huggins M.D. PROCEDURE: Upper endoscopy with biopsy. ANESTHESIOLOGIST: Augustine Cross M.D. INSTRUMENT: Olympus adult flexible upper endoscope. INDICATION: Anemia and cirrhosis. REASON FOR PROCEDURE: The procedure, risks, benefits, and possible consequences, including hemorrhage, aspiration, perforation and infection, and alternative treatments, were explained to the patient/legal guardian by Dr. Floyd Huggins and the patient/legal guardian understood and accepted these risks. PROCEDURE: After informed consent was obtained and the patient was adequately sedated, Olympus upper endoscope was advanced from mouth into the second portion of the duodenum and retroflexion was performed in the stomach. The patient had evidence of lesion at about 19 cm from the incisors, ulcerative, highly suspicious for malignancy, which was biopsied. Then, the scope was advanced to the GE junction. The patient had evidence of a 5 cm hiatal hernia with an ulcer in the distal esophagus. Edge of the ulcer was biopsied. The patient has a long segment of Caputo's starting from 19 cm from the incisors dilated esophagus all the way down. In the stomach, there was evidence of diffuse gastritis. Random biopsy from body and antrum was obtained to rule out H. pylori infection. In the duodenum, the patient has evidence of large diverticulum. SUMMARY FINDINGS: 1. A lesion at about 19 cm from the incisors suspicious for malignancy, status post biopsy. 2. Long segments of Caputo's esophagus, see above for details. 3. A large ulcer seen in the distal esophagus, status post biopsy. 4. A 5 cm hiatal hernia. 5. Gastritis, status post biopsy. 6. Duodenal diverticulum. RECOMMENDATIONS: 1. Check CEA level. 2. Follow biopsy results. 3. Consider chest CT if needed. 4. If the biopsies are positive, we will get an Oncology consultation. I want to thank, Dr. Pio Webb, for this kind referral. Floyd Huggins M.D. DR: ROBERT JOB#: [id number] CC: Pio Webb D.O.
[2017-05-19 12:00] VITALS: BP 123/73
--- NOTE | 2017-05-19 12:50 | Nephrology Progress Note ---
Assessment/Plan Assessment 1. hyponatremia. 2. hypomagnesemia 3. Prerenal azotemia and dehydration. 4. Proteinuria. 5. hypocalcemia 6. Malnutrition. Plan check vit d monitoring renal function avoid NSAID replace electrolyte as need it nutritional support Subjective Constitutional: Reports: no symptoms HEENT: Reports: no symptoms Genitourinary: Reports: no symptoms Neurologic/Psychiatric: Reports: no symptoms Subjective no events overnight no complaints Objective Objective Last 24 Hour Vital Signs Date Time Temp Pulse Resp B/P (MAP) Pulse Ox O2 Delivery O2 Flow Rate FiO2 05/19/17 12:00 97.6 97 18 123/73 95 Room Air 05/19/17 08:00 97.8 83 18 128/80 97 05/19/17 04:00 96.8 77 18 124/85 93 Room Air 05/19/17 00:00 97.9 74 18 141/74 95 Room Air 05/18/17 23:02 98.2 05/18/17 20:00 98.2 103 18 123/73 96 Room Air 05/18/17 16:29 98.7 87 19 128/74 98 Room Air Intake and Output 05/19/17 05/20/17 19:00 07:00 Intake Total 120 ml Output Total 100 ml Balance 20 ml Intake Oral 120 ml Output Urine Total 100 ml # Voids 1 # Bowel Movements 1 Laboratory Tests 05/19/17 05:15: White Blood Count 5.9, Red Blood Count 3.49L, Hemoglobin 9.5L, Hematocrit 28.6L , Mean Corpuscular Volume 82, Mean Corpuscular Hemoglobin 27.2, Mean Corpuscular Hemoglobin Concent 33.1, Red Cell Distribution Width 18.2H, Platelet Count 194, Mean Platelet Volume 9.8, Neutrophils (%) (Auto) 69.5, Lymphocytes (%) (Auto) 13.4L, Monocytes (%) (Auto) 9.7, Eosinophils (%) (Auto) 6.6H, Basophils (%) (Auto) 0.8, Sodium Level 139, Potassium Level 3.9, Chloride Level 108H, Carbon Dioxide Level 24, Anion Gap 7, Blood Urea Nitrogen 13, Creatinine 0.9, Estimat Glomerular Filtration Rate , Glucose Level 78, Calcium Level 7.8L Height (Feet): 5 Height (Inches): 2.00 Weight (Pounds): 105 Objective HEAD AND NECK: No JVP. No LAD. Sclerae are pale. Extraocular movements intact. Pupils are reactive to light and accommodation. LUNGS: Clear to auscultation. CARDIAC: Regular rate and rhythm. S1 and S2. No murmur. No rub. ABDOMEN: Soft, nontender, and nondistended. EXTREMITIES: No edema. No clubbing. No cyanosis. PAMELA DOE May 19, 2017 12:50
--- NOTE | 2017-05-19 13:59 | Consultation ---
History of Present Illness General Date patient seen: May 18, 2017 Chief Complaint: General Complaint Referring physician: MEG RAUSCH Reason for Consultation: FTT Present Illness HPI 81-year-old very pleasant female with past medical history significant for history of dementia. She was brought into [facility] after she refused to eat for several days. During the eval the pt is nonresponsive and has cognitive impairment. the pt was anxious. waxing and waning of consciousness Allergies: Coded Allergies: No Known Allergies (Unverified , 05/16/17) Medication History Scheduled Multivitamins* (Multivitamins*), 1 TAB ORAL DAILY, (Reported) Pantoprazole* (Protonix*), 40 MG ORAL DAILY, (Reported) Scheduled PRN Zolpidem Tartrate* (Zolpidem Tartrate*), 5 MG ORAL BEDTIME PRN for Insomnia, ( Reported) Patient History History Provided By: Patient, Medical Record, PMD Healthcare decision maker Resuscitation status Full Code Advanced Directive on File Past Medical/Surgical History Past Medical/Surgical History: (1) Anemia (2) Advanced dementia (3) Failure to thrive (4) ATN (acute tubular necrosis) (5) Iron deficiency (6) Cirrhosis (7) Esophageal ulcer (8) Barretts esophagus Review of Systems Psychiatric: Reports: prior hx, anxiety, depressed feelings Physical Exam General Appearance: WD/WN, no apparent distress, lethargic, confused Neurologic: disoriented, unresponsiveness Last 24 Hour Vital Signs Date Time Temp Pulse Resp B/P (MAP) Pulse Ox O2 Delivery O2 Flow Rate FiO2 05/19/17 12:00 97.6 97 18 123/73 95 Room Air 05/19/17 08:00 97.8 83 18 128/80 97 05/19/17 04:00 96.8 77 18 124/85 93 Room Air 05/19/17 00:00 97.9 74 18 141/74 95 Room Air 05/18/17 23:02 98.2 05/18/17 20:00 98.2 103 18 123/73 96 Room Air 05/18/17 16:29 98.7 87 19 128/74 98 Room Air Intake and Output 05/19/17 05/20/17 19:00 07:00 Intake Total 360 ml Output Total 100 ml Balance 260 ml Intake Oral 360 ml Output Urine Total 100 ml # Voids 1 # Bowel Movements 1 Laboratory Tests Test 05/19/17 05:15 White Blood Count 5.9 K/UL (4.8-10.8) Red Blood Count 3.49 M/UL (4.20-5.40) L Hemoglobin 9.5 G/DL (12.0-16.0) L Hematocrit 28.6 % (37.0-47.0) L Mean Corpuscular Volume 82 FL (80-99) Mean Corpuscular Hemoglobin 27.2 PG (27.0-31.0) Mean Corpuscular Hemoglobin Concent 33.1 G/DL (32.0-36.0) Red Cell Distribution Width 18.2 % (11.6-14.8) H Platelet Count 194 K/UL (150-450) Mean Platelet Volume 9.8 FL (6.5-10.1) Neutrophils (%) (Auto) 69.5 % (45.0-75.0) Lymphocytes (%) (Auto) 13.4 % (20.0-45.0) L Monocytes (%) (Auto) 9.7 % (1.0-10.0) Eosinophils (%) (Auto) 6.6 % (0.0-3.0) H Basophils (%) (Auto) 0.8 % (0.0-2.0) Sodium Level 139 MMOL/L (136-145) Potassium Level 3.9 MMOL/L (3.5-5.1) Chloride Level 108 MMOL/L (98-107) H Carbon Dioxide Level 24 MMOL/L (21-32) Anion Gap 7 mmol/L (5-15) Blood Urea Nitrogen 13 mg/dL (7-18) Creatinine 0.9 MG/DL (0.55-1.30) Estimat Glomerular Filtration Rate mL/min (>60) Glucose Level 78 MG/DL (74-106) Calcium Level 7.8 MG/DL (8.5-10.1) L Vitamin D 25-Hydroxy Pending 25-Hydroxy Vitamin D2 Pending 25-Hydroxy Vitamin D3 Pending Height (Feet): 5 Height (Inches): 2.00 Weight (Pounds): 105 Medications Current Medications Medications (Trade) Dose Ordered Sig/Natalie Route PRN Reason Start Time Stop Time Status Last Admin Dose Admin Acetaminophen (Tylenol) 650 mg Q4H PRN ORAL fever 05/17/17 19:30 06/15/17 23:29 Al Hydroxide/Mg Hydroxide (Mylanta II) 30 ml Q6H PRN ORAL dyspepsia 05/17/17 17:30 06/15/17 23:29 Dextrose (Dextrose 50%) STAT PRN IV Hypoglycemia 05/17/17 23:30 06/15/17 23:29 Iron Sucrose 100 mg/Sodium Chloride 60 ml @ 240 mls/hr BEDTIME IV 05/17/17 21:00 05/21/17 21:01 05/18/17 21:59 Lorazepam (Ativan 2mg/ml 1ml) 0.5 mg Q4H PRN IV For Anxiety 05/17/17 19:30 05/23/17 23:29 05/19/17 00:43 Morphine Sulfate (Morphine 5mg/ 2.5ml Oral Soln) 3 mg Q4H PRN ORAL For Pain 05/18/17 16:15 06/17/17 16:14 05/18/17 22:03 Ondansetron HCl (Zofran) 4 mg Q6H PRN IVP Nausea & Vomiting 05/17/17 17:30 06/15/17 23:29 Pantoprazole (Protonix) 40 mg EVERY 12 HOURS IVP 05/17/17 21:00 06/16/17 20:59 05/19/17 09:49 Polyethylene Glycol (Miralax) 17 gm HSPRN PRN ORAL Constipation 05/17/17 23:30 06/15/17 23:29 Zolpidem Tartrate (Ambien) 5 mg HSPRN PRN ORAL Insomnia 05/17/17 23:30 05/23/17 23:29 Assessment/Plan Status: stable Assessment/Plan encephalopathy failure to thrive -remeron 7.5 po qhs Owen Lozano M.D. May 19, 2017 13:59
--- NOTE | 2017-05-19 15:31 | General Progress Note ---
Assessment/Plan Problem List: (1) Anemia ICD Codes: D64.9 - Anemia, unspecified SNOMED: 985191813 (2) Failure to thrive SNOMED: 88595385 (3) Iron deficiency ICD Codes: E61.1 - Iron deficiency SNOMED: 38960501 (4) Cirrhosis ICD Codes: K74.60 - Unspecified cirrhosis of liver SNOMED: 36954570 (5) Esophageal ulcer ICD Codes: K22.10 - Ulcer of esophagus without bleeding SNOMED: 62807180 Status: progressing Assessment/Plan afebrile ftt obs anemia check h/h vitals stable Subjective ROS Limited/Unobtainable: Yes Allergies: Coded Allergies: No Known Allergies (Unverified , 05/16/17) Objective Last 24 Hour Vital Signs Date Time Temp Pulse Resp B/P (MAP) Pulse Ox O2 Delivery O2 Flow Rate FiO2 05/19/17 12:00 97.6 97 18 123/73 95 Room Air 05/19/17 08:00 97.8 83 18 128/80 97 05/19/17 04:00 96.8 77 18 124/85 93 Room Air 05/19/17 00:00 97.9 74 18 141/74 95 Room Air 05/18/17 23:02 98.2 05/18/17 20:00 98.2 103 18 123/73 96 Room Air 05/18/17 16:29 98.7 87 19 128/74 98 Room Air Intake and Output 05/19/17 05/20/17 19:00 07:00 Intake Total 360 ml Output Total 100 ml Balance 260 ml Intake Oral 360 ml Output Urine Total 100 ml # Voids 1 # Bowel Movements 1 Laboratory Tests 05/19/17 05:15: White Blood Count 5.9, Red Blood Count 3.49L, Hemoglobin 9.5L, Hematocrit 28.6L , Mean Corpuscular Volume 82, Mean Corpuscular Hemoglobin 27.2, Mean Corpuscular Hemoglobin Concent 33.1, Red Cell Distribution Width 18.2H, Platelet Count 194, Mean Platelet Volume 9.8, Neutrophils (%) (Auto) 69.5, Lymphocytes (%) (Auto) 13.4L, Monocytes (%) (Auto) 9.7, Eosinophils (%) (Auto) 6.6H, Basophils (%) (Auto) 0.8, Sodium Level 139, Potassium Level 3.9, Chloride Level 108H, Carbon Dioxide Level 24, Anion Gap 7, Blood Urea Nitrogen 13, Creatinine 0.9, Estimat Glomerular Filtration Rate , Glucose Level 78, Calcium Level 7.8L, Vitamin D 25-Hydroxy [Pending], 25-Hydroxy Vitamin D2 [Pending], 25- Hydroxy Vitamin D3 [Pending] Height (Feet): 5 Height (Inches): 2.00 Weight (Pounds): 105 General Appearance: confused Cardiovascular: normal rate Mervin Roque MD May 19, 2017 15:31
[2017-05-19 15:59] VITALS: BP 116/59
--- NOTE | 2017-05-19 16:06 | Infectious Diseases Prog Note ---
Assessment/Plan Problems: (1) Failure to thrive Assessment & Plan: rule out infectious etiology , screening for HIV and Syphilis is pending , and order hepatitis panels. check TSH (2) Cirrhosis Assessment & Plan: continue supportive care, avoid hepatotoxic meds, rule out hepatitis as an etiology (3) Advanced dementia Assessment & Plan: continue supportive care (4) Anemia Assessment & Plan: rule out GI blood loss, S/P endoscopy , GI is following Subjective ROS Limited/Unobtainable: Yes Allergies: Coded Allergies: No Known Allergies (Unverified , 05/16/17) Subjective she is comfortable in bed, alert, NAD, afebrile Objective Vital Signs Last 24 Hour Vital Signs Date Time Temp Pulse Resp B/P (MAP) Pulse Ox O2 Delivery O2 Flow Rate FiO2 05/19/17 15:59 97.1 89 18 116/59 98 Room Air 05/19/17 12:00 97.6 97 18 123/73 95 Room Air 05/19/17 08:00 97.8 83 18 128/80 97 05/19/17 04:00 96.8 77 18 124/85 93 Room Air 05/19/17 00:00 97.9 74 18 141/74 95 Room Air 05/18/17 23:02 98.2 05/18/17 20:00 98.2 103 18 123/73 96 Room Air 05/18/17 16:29 98.7 87 19 128/74 98 Room Air Height (Feet): 5 Height (Inches): 2.00 Weight (Pounds): 105 General Appearance: WD/WN, no acute distress HEENT: normocephalic, atraumatic, anicteric, mucous membranes moist Respiratory/Chest: chest wall non-tender, lungs clear, normal breath sounds, no respiratory distress Cardiovascular: normal peripheral pulses, normal rate, regular rhythm, no gallop/murmur Abdomen: normal bowel sounds, soft, non tender, no organomegaly, non distended , no mass Extremities: no cyanosis, no clubbing Skin: no rash, no lesions Neurologic/Psychiatric: alert Microbiology Date/Time Source Procedure Growth Status 05/16/17 21:10 Blood Blood Culture - Preliminary NO GROWTH AFTER 48 HOURS Resulted 05/16/17 20:55 Blood Blood Culture - Preliminary NO GROWTH AFTER 48 HOURS Resulted 05/17/17 00:40 Nasal Nares MRSA Culture - Final NO METHICILLIN RESISTANT STAPH AUREUS... Complete 05/17/17 00:40 Rectum VRE Culture - Final NO VANCOMYCIN RESISTANT ENTEROCOCCUS ... Complete Laboratory Tests Test 05/19/17 05:15 White Blood Count 5.9 K/UL (4.8-10.8) Red Blood Count 3.49 M/UL (4.20-5.40) L Hemoglobin 9.5 G/DL (12.0-16.0) L Hematocrit 28.6 % (37.0-47.0) L Mean Corpuscular Volume 82 FL (80-99) Mean Corpuscular Hemoglobin 27.2 PG (27.0-31.0) Mean Corpuscular Hemoglobin Concent 33.1 G/DL (32.0-36.0) Red Cell Distribution Width 18.2 % (11.6-14.8) H Platelet Count 194 K/UL (150-450) Mean Platelet Volume 9.8 FL (6.5-10.1) Neutrophils (%) (Auto) 69.5 % (45.0-75.0) Lymphocytes (%) (Auto) 13.4 % (20.0-45.0) L Monocytes (%) (Auto) 9.7 % (1.0-10.0) Eosinophils (%) (Auto) 6.6 % (0.0-3.0) H Basophils (%) (Auto) 0.8 % (0.0-2.0) Sodium Level 139 MMOL/L (136-145) Potassium Level 3.9 MMOL/L (3.5-5.1) Chloride Level 108 MMOL/L (98-107) H Carbon Dioxide Level 24 MMOL/L (21-32) Anion Gap 7 mmol/L (5-15) Blood Urea Nitrogen 13 mg/dL (7-18) Creatinine 0.9 MG/DL (0.55-1.30) Estimat Glomerular Filtration Rate mL/min (>60) Glucose Level 78 MG/DL (74-106) Calcium Level 7.8 MG/DL (8.5-10.1) L Vitamin D 25-Hydroxy Pending 25-Hydroxy Vitamin D2 Pending 25-Hydroxy Vitamin D3 Pending Current Medications Medications (Trade) Dose Ordered Sig/Natalie Route PRN Reason Start Time Stop Time Status Last Admin Dose Admin Acetaminophen (Tylenol) 650 mg Q4H PRN ORAL fever 10/25/17 19:30 06/15/17 23:29 Al Hydroxide/Mg Hydroxide (Mylanta II) 30 ml Q6H PRN ORAL dyspepsia 05/17/17 17:30 06/15/17 23:29 Dextrose (Dextrose 50%) STAT PRN IV Hypoglycemia 05/17/17 23:30 06/15/17 23:29 Iron Sucrose 100 mg/Sodium Chloride 60 ml @ 240 mls/hr BEDTIME IV 05/17/17 21:00 05/21/17 21:01 05/18/17 21:59 Lorazepam (Ativan 2mg/ml 1ml) 0.5 mg Q4H PRN IV For Anxiety 05/17/17 19:30 05/23/17 23:29 05/19/17 00:43 Mirtazapine (Remeron) 7.5 mg BEDTIME ORAL 05/19/17 21:00 06/18/17 20:59 Morphine Sulfate (Morphine 5mg/ 2.5ml Oral Soln) 3 mg Q4H PRN ORAL For Pain 05/18/17 16:15 06/17/17 16:14 05/18/17 22:03 Ondansetron HCl (Zofran) 4 mg Q6H PRN IVP Nausea & Vomiting 05/17/17 17:30 06/15/17 23:29 Pantoprazole (Protonix) 40 mg EVERY 12 HOURS IVP 05/17/17 21:00 06/16/17 20:59 05/19/17 09:49 Polyethylene Glycol (Miralax) 17 gm HSPRN PRN ORAL Constipation 05/17/17 23:30 06/15/17 23:29 Zolpidem Tartrate (Ambien) 5 mg HSPRN PRN ORAL Insomnia 05/17/17 23:30 05/23/17 23:29 Maximiliano Pierre M.D. May 19, 2017 16:06
[2017-05-22 10:13] LABS: VITAMIN D 25-OH TOTAL 13 ng/mL (.)
--- NOTE | 2017-05-22 22:15 | Discharge Summary 2 SIG ---
DATE OF ADMISSION: 05/16/2017 DATE OF DISCHARGE: 05/19/2017 REASON FOR ADMISSION: 81-year-old female was sent from the care home facility for evaluation due to the generalized weakness and decreased oral intake. In the emergency department, the patient was found to be anemic, hemoglobin -7.9, hematocrit- 27.4. The patient was admitted with failure to thrive and anemia. HOSPITAL COURSE: The patient was admitted. GI consult was requested. CT of the abdomen and pelvis revealed moderate size sliding-type hiatal hernia. Evidence of hepatic cirrhosis. Periesophageal varices, likely on the basis of portal hypertension, related to hepatic cirrhosis. No definite acute abnormality. Distal esophageal wall thickening, may be result of reflux esophagitis, bilateral bibasilar atelectasis, borderline cardiomegaly. CT of the chest revealed a moderate sized sliding-type hiatal hernia reported on CT of the abdomen and pelvis. Edema/ thickening of the mid and distal esophageal wall, may reflect esophagitis. Periesophageal varices, also previously reported. Left lower lobe atelectatic changes with resultant volume loss. Borderline cardiomegaly. T7, possibly T9 vertebral body compression fracture, age undetermined. Hepatic cirrhosis and cholelithiasis, previously reported. The patient subsequently undergone EGD due to the evidence of anemia and cirrhosis. EGD revealed a lesion at about 19 cm from the incisors, suspicion for malignancy , status post biopsy. Long segment of Caputo esophagus. A large ulcer in the distal esophagus, status post biopsy. A 5 cm hiatal hernia. Gastritis, status post biopsy. Duodenal diverticulum. GI recommended to check CT of the chest revealed no mass. Per GI recommendations, follow up with the biopsy results and if positive, will get Oncology consultation. The patient undergone 1 unit of transfusion of packed red blood cells. Anemia workup revealed anemia of iron deficiency. The patient was on Venofer for iron deficiency anemia. Hemoglobin and hematocrit were closely monitored. Stable after transfusion. Bowel regimen was instituted. The patient was on PPI for GI prophylaxis. Calorie count was implemented. GI cleared for discharge from the GI standpoint. Follow up with the primary medical doctor. Biopsies were still pending. Electrolytes were replaced. Circular Saw Edge Fuser followed. Recommended to avoid nephrotoxics, especially nonsteroid anti-inflammatory. Renal parameters and electrolytes were closely monitored. LFT remained within normal limits. The patient initially with evidence of likely dehydration with a BUN -39 and prior to discharge, BUN- 13 and creatinine- 0.9. TSH was within normal limits. Diet started as per speech therapist recommendations, after swallow evaluation was completed. Dietary recommendations were implemented. Ensure twice a day was added to existing diet. Follow up with warp knit operator and speech therapist at the facility. Psychiatrist followed the patient, diagnosed the patient with encephalopathy, started the patient on Remeron. The patient was stable for discharge. FINAL DIAGNOSES: 1. Severe anemia requiring blood transfusion. 2. Dehydration resulted in prerenal azotemia, resolved. 3. Status post esophagogastroduodenoscopy with a biopsy. 4. Caputo esophagitis. 5. Iron-deficiency anemia. 6. Periesophageal varices. 7. Hepatic cirrhosis. 8. Electrolyte imbalances (low potassium, low magnesium, low phosphorus). 9. Cachexia. 10. Likely severe protein-calorie malnutrition. DISCHARGE MEDICATIONS: See medication reconciliation list. DISCHARGE INSTRUCTIONS: The patient was discharged to care home facility. FOLLOWUP: Follow up with medical doctor at the facility. Pio Webb D.O. Kavya ButlerOur [facility] Of Lour[facility] Hospitalluis N.PGabi DR: Aramis JOB#: [id number] CC: ELIZABETH
== END 2017-05-19 17:50 | DRG 811 ==
LOC: EDBD 20:25 → EMR 21:00 → 2E 21:49 → EDBEDREQ 23:13 → 2E 05-17 01:45 → 4W 05-17 16:36
PROC: 30233N1 Transfusion of Nonautologous Red Blood Cells into Peripheral Vein, Percutaneous Approach (ICD-10-PCS; principal; 2017-05-17)
PROC: 0DD68ZX Extraction of Stomach, Via Natural or Artificial Opening Endoscopic, Diagnostic (ICD-10-PCS; 2017-05-18)
PROC: 0DD38ZX Extraction of Lower Esophagus, Via Natural or Artificial Opening Endoscopic, Diagnostic (ICD-10-PCS; 2017-05-18)
DX: D50.9 Iron deficiency anemia, unspecified (principal); N17.0 Acute kidney failure with tubular necrosis; E43 Unspecified severe protein-calorie malnutrition; G93.40 Encephalopathy, unspecified; I85.10 Secondary esophageal varices without bleeding; C15.9 Malignant neoplasm of esophagus, unspecified; K76.6 Portal hypertension; F03.90 Unspecified dementia, unspecified severity, without behavioral disturbance, psychotic disturbance, mood disturbance, and anxiety; K22.10 Ulcer of esophagus without bleeding; Z68.1 Body mass index [BMI] 19.9 or less, adult; I95.9 Hypotension, unspecified; K74.60 Unspecified cirrhosis of liver; R62.7 Adult failure to thrive; E86.0 Dehydration; K21.9 Gastro-esophageal reflux disease without esophagitis; G47.00 Insomnia, unspecified; E87.6 Hypokalemia; K44.9 Diaphragmatic hernia without obstruction or gangrene; K57.90 Diverticulosis of intestine, part unspecified, without perforation or abscess without bleeding; E83.42 Hypomagnesemia; E83.51 Hypocalcemia
CPT/HCPCS: 36415; 71010; 71260; 74177; 74230; 80048; 80053; 80061; 81003; 82306; 82550; 82553; 82607; 82746; 83540; 83550; 83605; 83615; 83735; 83880; 84100; 84443; 84484; 85007; 85025; 85044; 85060; 85610; 85651; 85730; 86850; 86900; 86901; 86920; 87040; 87081; 93005; 94003; 94150; 97803; 99284